=== PATIENT | female | born 1995 | race Caucasian/White ===

== ENCOUNTER 2024-10-20 10:56 | Outpatient (AMB) | payer MEDICAID, SELFPAY ==
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
[2024-10-20 10:59] VITALS: BP 121/76; PULSE 67; RESP 12; TEMP 36.8; O2SAT 98; BMI 38.6
== END 2024-10-20 13:00 | disposition home or self-care (01) ==
LOC: HODSOBC 10:56
PROVIDERS: PCP Family Medicine; Supervising Provider Obstetrics & Gynecology; Visit Provider Obstetrics & Gynecology
DX: O09.291 Supervision of pregnancy with other poor reproductive or obstetric history, first trimester (principal); O34.219 Maternal care for unspecified type scar from previous cesarean delivery; O09.891 Supervision of other high risk pregnancies, first trimester; O99.281 Endocrine, nutritional and metabolic diseases complicating pregnancy, first trimester; E03.9 Hypothyroidism, unspecified; Z3A.08 8 weeks gestation of pregnancy; O99.321 Drug use complicating pregnancy, first trimester; F12.90 Cannabis use, unspecified, uncomplicated; O99.331 Smoking (tobacco) complicating pregnancy, first trimester; F17.290 Nicotine dependence, other tobacco product, uncomplicated; Z14.8 Genetic carrier of other disease; Z71.6 Tobacco abuse counseling; Z79.890 Hormone replacement therapy
CPT/HCPCS: 76805; 76817; 99214; G0463

== ENCOUNTER 2024-11-20 13:10 | Outpatient (AMB) | payer MEDICAID, SELFPAY ==
[2024-11-20 13:20] VITALS: BP 116/77; PULSE 69; RESP 14; TEMP 36.7; O2SAT 96; BMI 37.6
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
== END 2024-11-20 14:09 | disposition home or self-care (01) ==
LOC: HODSOBC 13:10
PROVIDERS: PCP Family Medicine; Referring Provider Family Medicine; Supervising Provider Family Medicine; Visit Provider Family Medicine
DX: O99.281 Endocrine, nutritional and metabolic diseases complicating pregnancy, first trimester (principal); E03.9 Hypothyroidism, unspecified; O34.219 Maternal care for unspecified type scar from previous cesarean delivery; O99.321 Drug use complicating pregnancy, first trimester; F12.90 Cannabis use, unspecified, uncomplicated; Z3A.12 12 weeks gestation of pregnancy; Z79.890 Hormone replacement therapy
CPT/HCPCS: 99214; G0463

== ENCOUNTER 2024-12-20 13:22 | Outpatient (AMB) | payer MEDICAID, SELFPAY ==
[2024-12-20 13:52] VITALS: BP 111/68; PULSE 67; RESP 18; TEMP 35.9; O2SAT 98; BMI 40.0
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
== END 2024-12-20 14:54 | disposition home or self-care (01) ==
LOC: HODSOBC 13:22
PROVIDERS: Supervising Provider Obstetrics & Gynecology; Visit Provider Obstetrics & Gynecology
DX: O09.292 Supervision of pregnancy with other poor reproductive or obstetric history, second trimester (principal); Z3A.16 16 weeks gestation of pregnancy; O09.892 Supervision of other high risk pregnancies, second trimester; O99.282 Endocrine, nutritional and metabolic diseases complicating pregnancy, second trimester; E03.9 Hypothyroidism, unspecified; O99.332 Smoking (tobacco) complicating pregnancy, second trimester; F17.210 Nicotine dependence, cigarettes, uncomplicated; O99.322 Drug use complicating pregnancy, second trimester; F12.90 Cannabis use, unspecified, uncomplicated; Z71.6 Tobacco abuse counseling; Z79.890 Hormone replacement therapy; O34.219 Maternal care for unspecified type scar from previous cesarean delivery
CPT/HCPCS: 99213; G0463

== ENCOUNTER 2025-01-17 10:59 | Outpatient (AMB) | payer MEDICAID, SELFPAY ==
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
[2025-01-17 11:08] VITALS: BP 107/70; PULSE 78; RESP 17; TEMP 36.7; O2SAT 98; BMI 39.9
== END 2025-01-17 11:56 | disposition home or self-care (01) ==
LOC: HODSOBC 10:59
PROVIDERS: Supervising Provider Obstetrics & Gynecology; Visit Provider Obstetrics & Gynecology
DX: O09.292 Supervision of pregnancy with other poor reproductive or obstetric history, second trimester (principal); O09.892 Supervision of other high risk pregnancies, second trimester; O99.212 Obesity complicating pregnancy, second trimester; E66.01 Morbid (severe) obesity due to excess calories; O99.282 Endocrine, nutritional and metabolic diseases complicating pregnancy, second trimester; O34.219 Maternal care for unspecified type scar from previous cesarean delivery; E03.9 Hypothyroidism, unspecified; O99.322 Drug use complicating pregnancy, second trimester; O99.342 Other mental disorders complicating pregnancy, second trimester; Z3A.20 20 weeks gestation of pregnancy; O99.332 Smoking (tobacco) complicating pregnancy, second trimester; F17.290 Nicotine dependence, other tobacco product, uncomplicated; Z14.8 Genetic carrier of other disease; F32.A Depression, unspecified; F12.90 Cannabis use, unspecified, uncomplicated; Z71.6 Tobacco abuse counseling; Z79.890 Hormone replacement therapy
CPT/HCPCS: 99213; G0463

== ENCOUNTER 2025-01-31 11:47 | Outpatient (AMB) | payer MEDICAID, SELFPAY ==
[2025-01-31 11:56] VITALS: BP 115/72; PULSE 72; RESP 19; TEMP 36.5; O2SAT 98; BMI 41.1
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
== END 2025-01-31 12:38 | disposition home or self-care (01) ==
LOC: HODSOBC 11:47
PROVIDERS: Supervising Provider Obstetrics & Gynecology; Visit Provider Obstetrics & Gynecology
DX: O09.292 Supervision of pregnancy with other poor reproductive or obstetric history, second trimester (principal); O34.219 Maternal care for unspecified type scar from previous cesarean delivery; O09.892 Supervision of other high risk pregnancies, second trimester; O99.332 Smoking (tobacco) complicating pregnancy, second trimester; F17.290 Nicotine dependence, other tobacco product, uncomplicated; O99.322 Drug use complicating pregnancy, second trimester; F12.90 Cannabis use, unspecified, uncomplicated; Z3A.22 22 weeks gestation of pregnancy; Z71.6 Tobacco abuse counseling; Z88.0 Allergy status to penicillin
CPT/HCPCS: 99214; G0463

== ENCOUNTER 2025-03-09 11:05 | Outpatient (AMB) | payer MEDICAID, SELFPAY ==
[2025-03-09 11:29] VITALS: BP 119/73; PULSE 77; RESP 17; TEMP 36.5; O2SAT 98; BMI 41.5
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
== END 2025-03-09 11:58 | disposition home or self-care (01) ==
LOC: HODSOBC 11:05
PROVIDERS: Supervising Provider Obstetrics & Gynecology; Visit Provider Obstetrics & Gynecology
DX: O09.893 Supervision of other high risk pregnancies, third trimester (principal); O99.213 Obesity complicating pregnancy, third trimester; E66.01 Morbid (severe) obesity due to excess calories; O99.343 Other mental disorders complicating pregnancy, third trimester; F41.8 Other specified anxiety disorders; O99.283 Endocrine, nutritional and metabolic diseases complicating pregnancy, third trimester; O09.293 Supervision of pregnancy with other poor reproductive or obstetric history, third trimester; O34.219 Maternal care for unspecified type scar from previous cesarean delivery; E03.9 Hypothyroidism, unspecified; O99.333 Smoking (tobacco) complicating pregnancy, third trimester; F17.210 Nicotine dependence, cigarettes, uncomplicated; O99.323 Drug use complicating pregnancy, third trimester; F12.90 Cannabis use, unspecified, uncomplicated; Z3A.28 28 weeks gestation of pregnancy; Z71.6 Tobacco abuse counseling; Z79.890 Hormone replacement therapy; Z88.0 Allergy status to penicillin; Z53.29 Procedure and treatment not carried out because of patient's decision for other reasons
CPT/HCPCS: 99213; G0463

== ENCOUNTER 2025-03-21 14:54 | Outpatient (AMB) | payer MEDICAID, SELFPAY ==
[2025-03-21 15:18] VITALS: BP 108/71; PULSE 88; RESP 18; TEMP 36.7; O2SAT 96; BMI 41.2
--- NOTE | 2025-03-21 15:18 | AMB.OBVISIT ---
Vital Signs 03/21/25 15:18 Height 1.65 m Height Method Stated Weight 112.264 kg Weight Measurement Method Standing Scale BMI 41.2 BP 108/71 Blood Pressure Source Automatic Cuff Blood Pressure Location Left Upper Arm Position Sitting Respiration 18 Pulse 88 Pulse Source Monitor Temp 98.0 F Temp Source Oral Pulse Oximetry (%) 96 Oxygen Delivery Method Room Air Allergies/Home Meds Allergies & Medications Allergies Penicillins Allergy (Unknown, Verified 03/21/25 15:20) Rash amoxicillin Allergy (Verified 03/21/25 15:20) Rash Medication Reconciliation cetirizine 10 mg tablet (Zyrtec) 10 mg PO QHS #60 tabs 11/20/24 [Rx Confirmed 03/21/25] levothyroxine 125 mcg capsule 125 mcg PO QDAY #60 caps 11/20/24 [Rx Confirmed 03/21/25] vitamins no.159-iron fumarate 28 mg-folic acid 800 mcg tablet 1 tab PO DAILY #90 tabs 11/20/24 [Rx Confirmed 03/21/25] ondansetron 4 mg disintegrating tablet 4 mg PO Q6H PRN nausea and vomiting #14 tabs 01/17/25 [Rx Confirmed 03/21/25] fluconazole 150 mg tablet 150 mg PO QDAY 1 dose #1 tab 03/21/25 [Rx] Intake Visit Data Collection New Patient or Established: Established Patient (seen at [facility] within 3 years) Reason for Visit:: CARE Seen by Clinical Staff ONLY (RN/MA): No Sales Enablement Consultant Required: No Do You Feel Safe at Home: Yes Authorities Contacted: N/A PCP or OBGYN visit in last 3 months: Yes Hx Now: Yes Are you currently on any form of Control: No Pain Present Currently: No Pain Scale Used: Woodruff-Butt/Numerical Pain scale:: 0 Smoking Status Smoking Status: Current some day smoker (Smokes Marijuana) Cessation Counseling Provided: ABDOULAYE was advised that quitting smoking is the single most important factor to protect the health of themselves and their family. Discussed the benefits of quitting smoking with patient. Encouraged patient to quit smoking and provided Cessation assistance materials and resources. Tobacco Use: Nicotine Years smoked: 5 Are you interested in Quitting?: No Questionnaires Covid-19 Vaccine Questionnaire Has patient been vacinated for Covid-19 Have you been vacinated for Covid-19: No PHQ-9 PHQ-2 Over the last 2 weeks, how often have you been bothered by any of the following problems? 1. Little interest or pleasure in doing things: not at all 2. Feeling down, depressed, or hopeless: not at all Total score: 0 PHQ-9 3. Trouble falling or staying asleep, or sleeping too much: Not at all 4. Feeling tired or having little energy: Not at all 5. Poor appetite or overeating: Not at all 6. Feeling bad about yourself - or that you are a failure or have let yourself or your family down: Not at all 7. Trouble concentrating on things, such as reading the newspaper or watching television: Not at all 8. Moving or speaking so slowly that other people could have noticed? - Or the opposite - being so fidgety or restless that you have been moving around a lot more than usual: not at all 9. Thoughts that you would be better off or of hurting yourself in some way: Not at all Total score: 0 Source: Developed by Drs. Donald Acosta, Daniela Hoffmann, lEijah Blum and colleagues, with an educational cherie from [employer]. Depression screen completed yes Social History Living Situation History Lives With: Family (Parents) Housing: House Housing Other:: Stays at home IHSS (In house support) for son w/Type I DM. 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: Past Medical History Past Medical History: No Hx Neurological Disorders, Yes Hx Hypothyroidism (TAKES MEDS), No Hx Breast Cancer, No Hx Cardiac Disorders, No Hx Hypertension, No Hx Cancer, No Hx Blood Disorders, No Hx Anemia, Yes Hx Gastrointestinal Disorders, No Hx Renal Disease, No Hx Deep Vein Thrombosis, No Hx Diabetes Mellitus Type 1, No Hx Diabetes Mellitus Type 2, No Hx Hysterectomy and No Hx Polycystic Ovarian Syndrome Care OB Visit Log OB Flowsheet Initial Weight: Not Recorded Date <del>?</del> EGA Weight BP Alb Glu CTX Pres Fundal ht FHR Mov Dilation Station Effacement Hx Notes Visit Note 10/20/24 <del>?</del> 8w 0d 105.233 kg 121/76 130 11/20/24 <del>?</del> 12w 3d 102.512 kg 116/77 140 absent 12/20/24 <del>?</del> 16w 5d 109.089 kg 111/68 absent 15 135 absent 29-year-old multipara for OB check. Patient states she is compliant with levothyroxine 125. History of hypothyroid. Denies movement at this time. No SAB complaints. Patient refuses AFP today. Schedule MFM for anatomy scan. And return in 4 weeks OB check 01/17/25 <del>?</del> 20w 5d 108.862 kg 107/70 absent 20 140 active +FM No VB Patient crying. Very tearful. Having problems with the father the baby. She does not think he wants to be involved. Needs counseling. This was set up. 01/31/25 <del>?</del> 22w 5d 112.094 kg 115/72 absent 23 134 active No bleeding no contractions no loss of fluids Patient states she did not follow-up with her outpatient referral to mental health. She states she feels better. She states that she was having a bad day last time she saw me. She declines medication or counseling she. 03/09/25 <del>?</del> 28w 0d 113.115 kg 119/73 absent 28 156 active +FM no UCs No LOF Desires STD testing 03/21/25 <del>?</del> 29w 5d 112.264 kg 108/71 absent 30 160 active Good movement no contractions no loss of fluid Tearful in the office today unsure why. Patient states she is worried about her insulin-dependent diabetic toddler when she is in the hospital. Father the baby is going to assisted. He was not probably going to be involved with this anyway. KRISTA Calculator Estimated Delivery Date Method Current WG Current Estimate 06/01/25 Ultrasound #1 29w 5d Other Estimates 05/28/25 LMP (Certain) 30w 2d Expected Delivery Route/Plan 30 y/o Repeat 1-2 week prior to due date approximately May 19 Specific Issue/Plans Daily marijuana user. New father of the baby. Previous x 3 Starting maternal BMI 38 Severe anxiety depression mood instability/at high risk for depression and anxiety Hypothyroidism on meds Declines tubal ligation Notes Visit Date: 03/21/25 Last Updated by: Ida Dumont (OB Clinic)MD STD testing reviewed and normal patient had this drawn at [facility] 03/09/2025 she does not have BV she has yeast. She is RPR nonreactive hepatitis B surface antigen negative HIV negative and she is positive for HSV IgG. She has a history of cold sores. This was all explained in detail to the patient today. We will prescribe Diflucan she states she saw the maternal- medicine doctors in [place] at [facility] on the . I do not have report yet she stated they wanted to start NSTs. We will get the schedule. Most likely for obesity. Patient is always very tearful in the office we have tried to send her to counseling and she has not shown up. She declines counseling. None of her labs are scanned on the chart. None of her level 2 ultrasounds are scanned in the chart. Will try to get a hold of these. Will schedule her for an NSTs starting at 32 weeks. For obesity, marijuana user, multiple C-sections Visit Date: 03/09/25 Last Updated by: Ida Dumont (OB Clinic)MD The patient wants STD testing. She states she had relations with someone about a month ago but did not use a condom. She also wants to be tested for BV. But she declines a speculum exam stating she does not want me to look down there She would prefer to collect her own swab for BV. I explained this might not be accurate but the patient is insistent. She denies foul smelling DC, bleeding or other symptoms. A Level II us from [facility] at 25 weeks was obtained and reviewed with the patient. Fasting glucose and HgB AiC WNL. Pt declined GCT. Need PNC recored on chart. NIPT WNL. 46 XX Visit Date: 11/20/24 Last Updated by: Ida Dumont (OB Clinic)MD Patient is tearful in the office stating she had to wait a long time. She states she cannot sleep and requests generic Zyrtec. She would like a refill on vitamins. She thinks she has BV and would like a treatment with a cream. Her thyroid values were off and she cannot get into her primary care. She is on 100 mcg of thyroid replacement we will bump this up to 125 mcg. She is very stressed about delivery stating that she is the only person who can give her 5-year-old son his insulin. She is wondering if her 5-year-old could stay in the hospital with her. I told her this is not hospital policy. She might have to train another family member to give her son's insulin. Office Procedures OB Clinic LOC & Office Proc's Nursing/Assessment Patient Status: Established Patient OB Clinic Nursing Assessment: Medication Reconciliation, Update PMH in EMR and Vital Signs OB Clinic Coordination of Care: Complex Care and Chronic Disease 1-5, Consent,records obtained, informed consent, Education Simp Pt/Fam, 1 Ins Authorization, Lab and Imaging orders, Results/Orders obtained and Staff clarify orders Special Needs: Heart tones Established Patient Charge Established Patient Point Assignment: 150 Established Patient Point Charge: EP Level 4 (120-155) Assessment & Plan Diagnosis / Problem List (1) Morbid obesity with BMI of 40.0-44.9, adult: Status: Acute Assessment and Plan: Comanaged with MFM's deliver at 38 to 39 weeks (2) Depression affecting in third trimester, antepartum: Status: Acute Assessment and Plan: No meds declines counseling (3) : Status: Acute Qualifiers: Weeks of gestation: 30 weeks Qualified Code(s): Z3A.30 - 30 weeks gestation of (4) Hypothyroidism affecting : Status: Acute Qualifiers: Trimester: first trimester Qualified Code(s): O99.281 - Endocrine, nutritional and metabolic diseases complicating , first trimester; E03.9 - Hypothyroidism, unspecified (5) Previous delivery affecting : Status: Acute Assessment and Plan: Delivered at 38 to 39 weeks as this is #4
== END 2025-03-21 16:17 | disposition home or self-care (01) ==
LOC: HODSOBC 14:54
PROVIDERS: Supervising Provider Obstetrics & Gynecology; Visit Provider Obstetrics & Gynecology
DX: O09.293 Supervision of pregnancy with other poor reproductive or obstetric history, third trimester (principal); O34.219 Maternal care for unspecified type scar from previous cesarean delivery; O09.893 Supervision of other high risk pregnancies, third trimester; O99.283 Endocrine, nutritional and metabolic diseases complicating pregnancy, third trimester; E03.9 Hypothyroidism, unspecified; O99.213 Obesity complicating pregnancy, third trimester; E66.01 Morbid (severe) obesity due to excess calories; O99.343 Other mental disorders complicating pregnancy, third trimester; F41.8 Other specified anxiety disorders; O99.333 Smoking (tobacco) complicating pregnancy, third trimester; F17.290 Nicotine dependence, other tobacco product, uncomplicated; Z3A.29 29 weeks gestation of pregnancy; Z71.6 Tobacco abuse counseling; Z79.890 Hormone replacement therapy; Z88.0 Allergy status to penicillin
CPT/HCPCS: 99214; G0463

== ENCOUNTER 2025-04-11 09:50 | Outpatient (AMB) | payer MEDICAID, SELFPAY ==
[2025-04-11 10:01] VITALS: BP 126/77; PULSE 77; RESP 17; TEMP 36.5; O2SAT 97; BMI 43.0
--- NOTE | 2025-04-11 10:01 | OBCLNT_ITS ---
Vital Signs 04/11/25 10:01 Height 1.63 m Height Method Measured Weight 113.625 kg Weight Measurement Method Standing Scale BMI 43.0 BP 126/77 Blood Pressure Source Automatic Cuff Blood Pressure Location Right Upper Arm Position Sitting Respiration 17 Pulse 77 Pulse Source Monitor Temp 97.7 F Temp Source Temporal Artery Scan Pulse Oximetry (%) 97 Oxygen Delivery Method Room Air Allergies/Home Meds Allergies & Medications Allergies Penicillins Allergy (Unknown, Verified 04/11/25 10:02) Rash amoxicillin Allergy (Verified 04/11/25 10:02) Rash Medication Reconciliation cetirizine 10 mg tablet (Zyrtec) 10 mg PO QHS #60 tabs 11/20/24 [Rx Confirmed 04/11/25] levothyroxine 125 mcg capsule 125 mcg PO QDAY #60 caps 11/20/24 [Rx Confirmed 04/11/25] vitamins no.159-iron fumarate 28 mg-folic acid 800 mcg tablet 1 tab PO DAILY #90 tabs 11/20/24 [Rx Confirmed 04/11/25] ondansetron 4 mg disintegrating tablet 4 mg PO Q6H PRN nausea and vomiting #14 tabs 01/17/25 [Rx Confirmed 04/11/25] fluconazole 150 mg tablet 150 mg PO QDAY 1 dose #1 tab 03/21/25 [Rx Confirmed 04/11/25] Intake Visit Data Collection New Patient or Established: Established Patient (seen at [facility] within 3 years) Reason for Visit:: [facility] Consent obtained for Telemed Visit: No Seen by Clinical Staff ONLY (RN/MA): No Quality Process Lead Required: No Do You Feel Safe at Home: Yes Authorities Contacted: N/A PCP or OBGYN visit in last 3 months: Yes Date of Last PCP or OBGYN visit: 03/21/25 Hx Now: Yes Are you currently on any form of Control: No Pain Present Currently: No Pain Scale Used: Woodruff-Butt/Numerical Pain scale:: 0 Smoking Status Smoking Status: Current some day smoker (Smokes Marijuana) Cessation Counseling Provided: ABDOULAYE was advised that quitting smoking is the single most important factor to protect the health of themselves and their family. Discussed the benefits of quitting smoking with patient. Encouraged patient to quit smoking and provided Cessation assistance materials and resources. Tobacco Use: Cigarette Years smoked: 5 Are you interested in Quitting?: Yes Would you like additional Smoking Cessation Counseling?: No Questionnaires Covid-19 Vaccine Questionnaire Has patient been vacinated for Covid-19 Have you been vacinated for Covid-19: No PHQ-9 PHQ-2 Over the last 2 weeks, how often have you been bothered by any of the following problems? 1. Little interest or pleasure in doing things: not at all PHQ-9 8. Moving or speaking so slowly that other people could have noticed? - Or the opposite - being so fidgety or restless that you have been moving around a lot more than usual: not at all Source: Developed by Drs. Donald Acosta, Daniela Hoffmann, Elijah Blum and colleagues, with an educational cherie from [employer]. Social History Living Situation History Lives With: Family (Parents) Housing: House Housing Other:: Stays at home IHSS (In house support) for son w/Type I DM. 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: Past Medical History Past Medical History: No Hx Neurological Disorders, Yes Hx Hypothyroidism (TAKES MEDS), No Hx Breast Cancer, No Hx Cardiac Disorders, No Hx Hypertension, No Hx Cancer, No Hx Blood Disorders, No Hx Anemia, Yes Hx Gastrointestinal Disorders, No Hx Renal Disease, No Hx Deep Vein Thrombosis, No Hx Diabetes Mellitus Type 1, No Hx Diabetes Mellitus Type 2, No Hx Hysterectomy and No Hx Polycystic Ovarian Syndrome Care OB Visit Log OB Flowsheet Initial Weight: Not Recorded Date -?-?-?-?-?-?-?-?-?-?-?-?- EGA Weight BP Alb Glu CTX Pres Fundal ht FHR Mov Dilation Station Effacement Hx Notes Visit Note 10/20/24 -?-?-?-?-?-?-?-?-?-?-?-?- 8w 0d 105.233 kg 121/76 130 11/20/24 -?-?-?-?-?-?-?-?-?-?-?-?- 12w 3d 102.512 kg 116/77 140 absent 12/20/24 -?-?-?-?-?-?-?-?-?-?-?-?- 16w 5d 109.089 kg 111/68 absent 15 135 a bsent 29-year-old multipara for OB check. Patient states she is compliant with levothyroxine 125. History of hypothyroid. Denies movement at this time. No SAB complaints. Patient refuses AFP today. Schedule [facility] for anatomy scan. And return in 4 weeks OB check 01/17/25 -?-?-?-?-?-?-?-?-?-?-?-?- 20w 5d 108.862 kg 107/70 absent 20 140 active +FM N o VB Patient crying. Very tearful. Having problems with the father the baby. She does not think he wants to be involved. Needs counseling. This was set up. 01/31/25 -?-?-?-?-?-?-?-?-?-?-?-?- 22w 5d 112.094 kg 115/72 absent 23 134 a ctive No bleeding no contractions no loss of fluids Patient states she did not follow-up with her outpatient referral to mental health. She states she feels better. She states that she was having a bad day last time she saw me. She declines medication or counseling she. 03/09/25 -?-?-?-?-?-?-?-?-?-?-?-?- 28w 0d 113.115 kg 119/73 absent 28 156 active +FM n o UCs No LOF Desires STD testing 03/21/25 -?-?-?-?-?-?-?-?-?-?-?-?- 29w 5d 112.264 kg 108/71 absent 30 160 a ctive Good movement no contractions no loss of fluid Te arful in the office today unsure why. Patient states she is worried about her insulin-dependent diabetic toddler when she is in the hospital. Father the baby is going to long-term. He was not probably going to be involved with this anyway. 04/11/25 -?-?-?-?-?-?-?-?-?-?-?-?- 32w 5d 113.625 kg 126/77 absent 35 145 a ctive Good movement no contractions no loss of fluids. Baby measuring large. Following with [facility]. Schedule at 38 weeks. KRISTA Calculator Estimated Delivery Date Method Current WG Current Estimate 06/01/25 Ultrasound #1 32w 5d Other Estimates 05/28/25 LMP (Certain) 33w 2d Expected Delivery Route/Plan 30 y/o Repeat 1-2 week prior to due date approximately May 14- Specific Issue/Plans Daily marijuana user. New father of the baby. Previous x 3 Starting maternal BMI 38 Severe anxiety depression mood instability/at high risk for depr ession and anxiety Hypothyroidism on meds Declines tubal ligation Notes Visit Date: 04/11/25 Last Updated by: Ida Dumont (OB Clinic)MD NSTs BPP's authorized and scheduled. Schedule 05/14/2025. EDC 05/28/2025. LGA baby. Morbid obesity. Previous x 3. Visit Date: 03/21/25 Last Updated by: Ida Dumont (OB Clinic)MD STD testing reviewed and normal patient had this drawn at [facility] 03/09 she does not have BV she has yeast. She is RPR nonreactive hepatitis B surface antigen negative HIV negative and she is positive for HSV IgG. She has a history of cold sores. This was all explained in detail to the patient today. We will prescribe Diflucan she states she saw the maternal- medicine doctors in [place] at [facility] on the . I do not have report yet she stated they wanted to start NSTs. We will get the schedule. Most likely for obesity. Patient is always very tearful in the office we have tried to send her to counseling and she has not shown up. She declines counseling. None of her labs are scanned on the chart. None of her level 2 ultrasounds are scanned in the chart. Will try to get a hold of these. Will schedule her for an NSTs starting at 32 weeks. For obesity, marijuana user, multiple C-sections Visit Date: 03/09/25 Last Updated by: Ida Dumont (OB Clinic)MD The patient wants STD testing. She states she had relations with someone about a month ago but did not use a condom. She also wants to be tested for BV. But she declines a speculum exam stating she does not want me to look down there She would prefer to collect her own swab for BV. I explained this might not be accurate but the patient is insistent. She denies foul smelling DC, bleeding or other symptoms. A Level II us from [facility] at 25 weeks was obtained and reviewed with the patient. Fasting glucose and HgB AiC WNL. Pt declined GCT. Need PNC recored on chart. NIPT WNL. 46 XX Visit Date: 11/20/24 Last Updated by: Ida Dumont (OB Clinic)MD Patient is tearful in the office stating she had to wait a long time. She states she cannot sleep and requests generic Zyrtec. She would like a refill on vitamins. She thinks she has BV and would like a treatment with a cream. Her thyroid values were off and she cannot get into her primary care. She is on 100 mcg of thyroid replacement we will bump this up to 125 mcg. She is very stressed about delivery stating that she is the only person who can give her 5-year-old son his insulin. She is wondering if her 5-year-old could stay in the hospital with her. I told her this is not hospital policy. She might have to train another family member to give her son's insulin. Office Procedures OB Clinic LOC & Office Proc's Nursing/Assessment Patient Status: Established Patient OB Clinic Nursing Assessment: Medication Reconciliation, Update PMH in EMR and Vital Signs OB Clinic Coordination of Care: Complex Care and Chronic Disease 1-5, Consent,records obtained, informed consent, Education Simp Pt/Fam, 4+ Authorizations needed, Lab and Imaging orders and Results/Orders obtained Special Needs: Heart tones Established Patient Charge Established Patient Point Assignment: 150 Established Patient Point Charge: EP Level 4 (120-155) Assessment & Plan Diagnosis / Problem List (1) Previous delivery affecting : Status: Acute (2) : Status: Acute Qualifiers: Weeks of gestation: 30 weeks Qualified Code(s): Z3A.30 - 30 weeks gestation of (3) Depression affecting in third trimester, antepartum: Status: Acute (4) Morbid obesity with BMI of 40.0-44.9, adult: Status: Acute
== END 2025-04-11 10:42 | disposition home or self-care (01) ==
LOC: HODSOBC 09:50
PROVIDERS: Supervising Provider Obstetrics & Gynecology; Visit Provider Obstetrics & Gynecology
DX: O09.293 Supervision of pregnancy with other poor reproductive or obstetric history, third trimester (principal); O09.893 Supervision of other high risk pregnancies, third trimester; O34.219 Maternal care for unspecified type scar from previous cesarean delivery; Z3A.32 32 weeks gestation of pregnancy; O99.213 Obesity complicating pregnancy, third trimester; E66.01 Morbid (severe) obesity due to excess calories; O99.343 Other mental disorders complicating pregnancy, third trimester; O99.333 Smoking (tobacco) complicating pregnancy, third trimester; F41.8 Other specified anxiety disorders; O36.63X0 Maternal care for excessive fetal growth, third trimester, not applicable or unspecified; O99.283 Endocrine, nutritional and metabolic diseases complicating pregnancy, third trimester; E03.9 Hypothyroidism, unspecified; O99.323 Drug use complicating pregnancy, third trimester; F17.210 Nicotine dependence, cigarettes, uncomplicated; F12.90 Cannabis use, unspecified, uncomplicated; Z71.6 Tobacco abuse counseling; Z79.890 Hormone replacement therapy; Z88.0 Allergy status to penicillin
CPT/HCPCS: 99214; G0463

== ENCOUNTER 2025-05-10 08:41 | Outpatient (RCR) | payer MEDICAID, SELFPAY ==
--- NOTE | 2025-04-19 09:42 | XR_ITS ---
Examination: Biophysical profile, ultrasound Date and time of exam: March 2020 has and 25, 0952 hours INDICATIONS: Diagnosis morbid obesity Technique: Multiple transabdominal sonographic images of the pelvis abdomen obtained. Attention is directed to the breathing movement, gross body movement, amniotic fluid volume and tone. Findings: Amniotic fluid index 15.2 cm Total biophysical profile is 8 of 8. breathing movement is 2. Gross body movement is 2. tone is 2. Qualitative amniotic fluid volume is 2 Impression: Biophysical profile is 8 of 8.
[2025-04-19 10:21] VITALS: BP 106/62; PULSE 75; RESP 16; TEMP 36.7
--- NOTE | 2025-04-26 09:11 | XR_ITS ---
Examination: Biophysical profile, ultrasound Date and time of exam: April 26, 2025 0916 hours INDICATIONS: Diagnosis morbid obesity Technique: Multiple transabdominal sonographic images of the pelvis abdomen obtained. Attention is directed to the breathing movement, gross body movement, amniotic fluid volume and tone. Findings: Amniotic fluid index 22.9 cm Total biophysical profile is 8 of 8. breathing movement is 2. Gross body movement is 2. tone is 2. Qualitative amniotic fluid volume is 2 Impression: Biophysical profile is 8 of 8.
[2025-04-26 09:41] VITALS: BP 101/56; PULSE 76; RESP 16; TEMP 36.7
--- NOTE | 2025-04-30 09:12 | XR_ITS ---
Examination: Biophysical profile, ultrasound Date and time of exam: April 30, 2025, 0926 hours INDICATIONS: Diagnosis maternal obesity Technique: Multiple transabdominal sonographic images of the pelvis abdomen obtained. Attention is directed to the breathing movement, gross body movement, amniotic fluid volume and tone. Findings: Amniotic fluid index 15.8 cm Total biophysical profile is 8 of 8. breathing movement is 2. Gross body movement is 2. tone is 2. Qualitative amniotic fluid volume is 2 Impression: Biophysical profile is 8 of 8.
[2025-04-30 09:39] VITALS: BP 108/59; PULSE 78; RESP 16
--- NOTE | 2025-05-03 09:24 | XR_ITS ---
Examination: Biophysical profile, ultrasound Date and time of exam: May 03, 2025 0931 hours INDICATIONS: Diagnosis maternal obesity. Technique: Multiple transabdominal sonographic images of the pelvis abdomen obtained. Attention is directed to the breathing movement, gross body movement, amniotic fluid volume and tone. Findings: Amniotic fluid index 20.5 cm Total biophysical profile is 8 of 8. breathing movement is 2. Gross body movement is 2. tone is 2. Qualitative amniotic fluid volume is 2 Impression: Biophysical profile is 8 of 8.
[2025-05-03 10:04] VITALS: BP 116/59; PULSE 80; RESP 16; TEMP 36.7
--- NOTE | 2025-05-10 08:46 | XR_ITS ---
Examination: Biophysical profile, ultrasound Date and time of exam: May 10, 2025 0902 hours INDICATIONS: Diagnosis maternal obesity Technique: Multiple transabdominal sonographic images of the pelvis abdomen obtained. Attention is directed to the breathing movement, gross body movement, amniotic fluid volume and tone. Findings: Amniotic fluid index 20.6 cm Total biophysical profile is 8 of 8. breathing movement is 2. Gross body movement is 2. tone is 2. Qualitative amniotic fluid volume is 2 Impression: Biophysical profile is 8 of 8.
[2025-05-10 10:00] VITALS: BP 121/76; PULSE 75; RESP 16; TEMP 36.7
== END 2025-05-10 23:59 | disposition home or self-care (01) ==
LOC: S4S1 08:41
PROVIDERS: Referring Provider Obstetrics & Gynecology; Visit Provider Obstetrics & Gynecology
DX: O99.213 Obesity complicating pregnancy, third trimester (principal); E66.01 Morbid (severe) obesity due to excess calories; O99.343 Other mental disorders complicating pregnancy, third trimester; F32.A Depression, unspecified; O34.219 Maternal care for unspecified type scar from previous cesarean delivery; Z3A.36 36 weeks gestation of pregnancy
CPT/HCPCS: 59025; 76819

== ENCOUNTER 2025-05-14 10:13 | Inpatient (IN) | payer MEDICAID, SELFPAY ==
[2025-05-14] VITALS (24 sets, daily range): BP systolic 102–144; BP diastolic 52–92; PULSE 54–78; RESP 14–18; TEMP 36.6–36.8; O2SAT 93–99; BMI 43.1
[2025-05-14 11:45] LABS: Basophils # (Auto) 0.0 Thou/mm3 (0.0-0.2); Basophils % (Auto) 1 % (0-2.5); Eosinophils # (Auto) 0.1 Thou/mm3 (0.0-0.5); Eosinophils % (Auto) 1 % (0-10); Hematocrit 38.0 % (36.0-46.0); Hemoglobin 12.7 g/dL (12.0-16.0); Immature Granulocytes Auto 0.04 Thou/mm3 (0.00-0.00); Lymphocytes # (Auto) 1.9 Thou/mm3 (1.0-4.8); Lymphocytes % (Auto) 26 % (10-50); Mean Corpuscular HGB Conc 33.4 g/dl (31.0-37.0); Mean Corpuscular Hemoglobin 27.5 pg (25.0-35.0); Mean Corpuscular Volume 82 fL (80-100); Monocytes # (Auto) 0.3 Thou/mm3 (0.0-0.8); Monocytes % (Auto) 5 % (0-12); Neutrophils # (Auto) 5.0 Thou/mm3 (1.8-7.7); Neutrophils % (Auto) 67 % (37-80); Nucleated Red Blood Cell # 0.00 Thou/mm3 (0.00-0.00); Nucleated Red Blood Cell % 0 /100 WBC (0); Platelet Count 260 Thou/mm3 (140-440); RDW Standard Deviation 38.8 fL (36.4-46.3); Red Blood Count 4.61 Miln/mm3 (4.00-5.20); White Blood Count 7.4 Thou/mm3 (3.6-11.0)
[2025-05-14] MEDS: CITRIC ACID/SODIUM CITR 15 ML UDC (BICITRA) 30 ML PO (12:07)
[2025-05-14] MEDS: FAMOTIDINE INJ 10 MG/ML VIAL 2 ML 20 MG IV (12:08)
[2025-05-14 12:13] LABS: Syphilis Nonreactive (Nonreactive)
--- NOTE | 2025-05-14 13:55 | PD.GYNPROC ---
Operative Note - GRADUATING MACHINE OPERATOR Procedure Date of procedure: 05/14/25 Procedure Performed: Repeat low-transverse section Indication: The patient is a 30-year-old -0-0-2 history of x 3 in the past. One of her children at age 1 from a car accident. Patient presents at 38 weeks for scheduled elective repeat section. section is being performed early secondary to #4 and morbid obesity. Pre-Op diagnosis: 1. Previous x 3 2. Morbid obesity with BMI of 43 Post-Op diagnosis: Same Anesthesia type: Spinal Fluids: crystalloid Fluid amount (mL): 1,100 Urine output (mL): 200 Specimen: none Implants: None Estimated blood loss (ml): 600 Findings: Liveborn female in the OA presentation with no nuchal cord and no meconium .Apgars were 8 and 9 .Weight was 7 pounds 8 ounces or 3390 g. Patient had dense scar tissue involving her fascia and abdominal muscles. It took almost 10 minutes to get through the skin to the uterus secondary to adhesions. It took two fresh scalpel blades to get through to the uterus. The there was very little scar tissue present around the uterus however the uterus could not be removed during repair secondary to dense scar tissue involving the rectus muscles and fascia. Ovaries and fallopian tubes could not be well-visualized. Lower uterine segment was thick Complications: none Narrative: After obtaining informed consent, the patient was brought back to the operating room and spinal anesthesia administered. She was then prepped and draped in the dorsal supine position with leftward tilt in a normal sterile fashion. A Latif catheter was inserted the patient's bladder. As patient gives gets a rash with penicillin, the patient was given 900 mg of clindamycin intravenously by anesthesia. A Pfannenstiel skin incision was made with a scalpel and the prior scar removed. The incision was carried down to the underlying fascia. The fascia was incised in the midline and the fascial incision extended laterally using Beltrán scissors. Of note dense scar tissue was noted between the fascia and the rectus abdominal muscles. The rectus muscles were in the midline with a scalpel. The peritoneal cavity was entered bluntly with the surgeon's fingers. The rectus muscles were then able to be split in the midline and bluntly dissected. The rectus muscles had to be split on both sides in a transverse fashion using a Bovie electrocautery in order to make room for the head. The uterus was identified and the bladder blade inserted. The uterus was incised in a low transverse fashion above the bladder reflection using a scalpel. The uterine incision was extended laterally using blunt dissection with the surgeon's fingers. The bag snell was ruptured and copious clear fluid was noted. The bladder blade was removed and the infant was delivered atraumatically. Of note a vacuum was used to extract the head as there was so much scar tissue that I could not extract the head without the aid of a vacuum. The baby was removed with 1 pull of the vacuum atraumatically and was vigorous. The cord was clamped and cut after waiting 1 to 2 minutes. The baby was handed off to the waiting pediatric staff. Cord blood was collected cord gases were saved. The placenta was then manually removed and the uterus could not be exteriorized secondary to dense scar tissue. The uterus was free but it could not be removed through the abdominal incision secondary to scar tissue of the muscles. The tubes and ovaries were unable to be visualized. The uterine cavity was cleared of all clots and debris using a laparotomy sponge. The edges of the uterus were grasped with ring forceps and the uterus was closed with a running locked fashion of 0 Monocryl. Excellent hemostasis was noted. Copious irrigation was carried out and the uterine incision reexamined several times and noted be hemostatic. Of note patient had very good uterine tone. After ensuring the rectus muscles were hemostatic ,the fascia was closed using 0 Vicryl in a running fashion. Excellent hemostasis was noted. The subcutaneous tissues were irrigated and found to be hemostatic. Eleni hemostatic powder was placed subcutaneous layer which was then closed using 2 running sutures of 2-0 plain secondary to the depth of the adipose tissue. The skin was closed with a subcuticular suture of 4-0 Monocryl. The patient tolerated the procedure well. Sponge, lap, needle and instrument counts were correct x 2. The patient went to the recovery area awake and in stable condition. Pathology was none. Surgical staff CHRISTOPHER AcevesA Operation Date: 05/14/25 12:45 <No data on this case meets the specified criteria> Diagnosis Discharge Diagnosis (1) Morbid obesity with BMI of 40.0-44.9, adult: Status: Acute Problem details: Lovenox , antibiotics x 24 hours (2) : Status: Acute (3) Previous section: Status: Acute Problem details: Previous x 3 Problem List Completed Was Problem List Reviewed/Reconciled?: Yes (2) Qualifiers: Weeks of gestation: 30 weeks Qualified Code(s): Z3A.30 - 30 weeks gestation of
[2025-05-14] MEDS: OXYTOCIN in NS 20 units 20 UNIT/1,000 ML BAG 125 UNIT IV (16:03)
[2025-05-14] MEDS: ACETAMINOPHEN IVPB 1,000 MG/100 ML VIAL 250 MG IV (16:03)
[2025-05-14] MEDS: ONDANSETRON INJ 2 MG/ML INJ 2 ML 4 MG IVP (16:11)
--- NOTE | 2025-05-14 18:02 | OBDSUM_ITS ---
Data ([place]) Data Hx Section: Yes Maternal Blood Type: O Pos Rubella Titre: Positive RPR: Non-reactive Labs: Negative: RPR, Hepatitis B, HIV, Chlamydia and Gonorrhea and Unknown: Group Beta Strep : 4 Term: 3 : 0 Livin Abortions: Spontaneous & Theraputic: 0 Delivery Data ([facility]) Labor Data ROM date: 05/14/25 ROM time: 13:11 Amniotic membrane rupture type: Artificial Amniotic fluid description: Clear Delivery Data EDC: 05/28/25 EDC calculated by:: LMP/early US confirmation Date of arrival to unit: 05/14/25 Time of arrival to unit: 10:00 [place] delivery date: 05/14/25 delivery time: 13:12 Gestational age (weeks): 38 Placenta delivery date: 05/14/25 Placenta delivery time: 13:14 Delivered by: Ida Dumont ([facility]) Delivery nurse: PANTERA López Neworn nurse: PANTERA Menendez Medical Transcriber at delivery: No Support person(s) at delivery: Mother in Law Other staff at delivery: Tony Caicedo- RN Student Moses Dumont- RN Student Delivery Method Delivery method: Low Transverse Presentation: Vertex position: OA Anesthesia Type Anesthesia Type: Spinal Anesthesia type: Spinal Delivery Room Medications Delivery room medications: Pitocin 20 u IV Placenta Placenta delivery description: Manual Removal Cord blood sent to lab: Yes cord blood collection: Cord Blood Type EBL Estimated blood loss (ml): 600 Umbilical Cord cord description: 3 Vessels Additional Procedures See op report for further details Complications Complications: None Data ([place]) [place] Data order: 1 's gender: Female Identification band number: [id number] weight (gms): 3390 g Weight (pounds): 7 lbs and 7.6 ozs [place] length: 52.71 cm 1 minute: 8 5 minutes: 9
[2025-05-14 18:03] LABS: Amphetamine/Metham Scrn,Ur OB Negative (Negative); Benzoylecgonine Screen, Ur OB Negative (Negative); Opiate Screen,Urine OB Negative (Negative); THC Screen,Urine OB Positive (Negative)
[2025-05-14] MEDS: KETOROLAC INJ 30 MG/ML VIAL IVP (18:03)
[2025-05-14 18:04] LABS: THC U Confirm* See Sep Rpt
--- NOTE | 2025-05-14 18:30 | ESHP_ITS ---
Documentation for date of: 05/14/25 OB Labor/Induct. HPI History of Present Illness Chief complaint: Schedule repeat : 4 Para: 3 Term pregnancies: 3 pregnancies: 0 Living children: 2 History of Abortions: Spontaneous and Elective: 0 History of sections: Yes Date of last menstrual period: 08/21/24 KRISTA: 05/28/25 Gestational Age (weeks): 38 Gestational Age (days): 0 Gestational age based on last menstrual period: 38 History of present illness: The patient is a 30-year-old -0-0-2 with all care with the [facility]. Patient is 38 weeks with an EDC of 05/28/2025. She presents for scheduled elective repeat section. It is being done at 38 weeks secondary to #4 and a BMI of 43. History of Present Dating criteria: LMP confirmed by 1st trimester US Adequate Care: Yes Ultrasounds: normal mid trimester US Obstetrical complications: none Medical complications: psychiatric (Severe anxiety depression, hypothyroid on medication, maternal morbid obesity) Labs Maternal Blood Type: O Pos Labs: Positive: Rubella Titre and Herpes Type 1, Negative: RPR, Hepatitis B, HIV, Chlamydia, Gonorrhea and Herpes Type 2 and Unknown: Group Beta Strep and Covid-19 Past Medical History Surgical History SURGICAL: Positive Section Past Medical History Comments PMH COMMENT: Hypothyroid is him on levothyroxine, morbid obesity, anxiety depression. Meds Home Medications and Allergies Allergies Allergy/AdvReac Type Severity Reaction Status Date / Time Penicillins Allergy Unknown Rash Verified 04/11/25 10:02 amoxicillin Allergy Rash Verified 04/11/25 10:02 OB Exam Physical Exam Vital signs: Temp Pulse Resp BP Pulse Ox O2 Del Method 98.1 F 72 18 110/82 99 Room Air 05/14/25 14:15 05/14/25 16:15 05/14/25 16:15 05/14/25 16:15 05/14/25 16:15 05/14/25 16:15 Routine Respiratory Exam Respiratory: Present CTA bilaterally Routine Cardiovascular Exam Cardiovascular: Present RRR Routine Abdominal Exam Abdominal: Present soft Detailed Labor and Delivery Exam Membranes: intact monitor accelerations: 15x15 monitor decelerations: None adjunct psychology professor variability: Moderate (11-25) Contraction frequency (min): None OB Results Labs 05/14/25 11:30 Labs: Short CBC 05/14/25 Range/Units 11:30 WBC 7.4 (3.6-11.0) Thou/mm3 Hgb 12.7 (12.0-16.0) g/dL Hct 38.0 (36.0-46.0) % Plt Count 260 (140-440) Thou/mm3 OB Assessment & Plan Assessment and Plan (1) Morbid obesity with BMI of 40.0-44.9, adult: Status: Acute Assessment and plan: Antibiotics x 24 hours postop. Allergic to penicillin. Given clindamycin and then gentamycin. (2) : Status: Acute (3) Previous section: Status: Acute Assessment and plan: For scheduled elective repeat section, [address] (2) Qualifiers: Weeks of gestation: 30 weeks Qualified Code(s): Z3A.30 - 30 weeks gestation of
[2025-05-15] MEDS: KETOROLAC INJ 30 MG/ML VIAL IVP ×3 (01:08→18:30)
[2025-05-15] MEDS: OXYTOCIN in NS 20 units 20 UNIT/1,000 ML BAG 125 UNIT IV (01:08)
[2025-05-15 03:58] VITALS: BP 109/69; PULSE 59; RESP 18; TEMP 36.6; O2SAT 98
[2025-05-15 05:37] LABS: Basophils # (Auto) 0.0 Thou/mm3 (0.0-0.2); Basophils % (Auto) 0 % (0-2.5); Eosinophils # (Auto) 0.1 Thou/mm3 (0.0-0.5); Eosinophils % (Auto) 1 % (0-10); Hematocrit 31.5 % (36.0-46.0); Hemoglobin 10.4 g/dL (12.0-16.0); Immature Granulocytes Auto 0.02 Thou/mm3 (0.00-0.00); Lymphocytes # (Auto) 1.5 Thou/mm3 (1.0-4.8); Lymphocytes % (Auto) 20 % (10-50); Mean Corpuscular HGB Conc 33.0 g/dl (31.0-37.0); Mean Corpuscular Hemoglobin 27.6 pg (25.0-35.0); Mean Corpuscular Volume 84 fL (80-100); Monocytes # (Auto) 0.5 Thou/mm3 (0.0-0.8); Monocytes % (Auto) 6 % (0-12); Neutrophils # (Auto) 5.2 Thou/mm3 (1.8-7.7); Neutrophils % (Auto) 72 % (37-80); Nucleated Red Blood Cell # 0.00 Thou/mm3 (0.00-0.00); Nucleated Red Blood Cell % 0 /100 WBC (0); Platelet Count 190 Thou/mm3 (140-440); RDW Standard Deviation 40.1 fL (36.4-46.3); Red Blood Count 3.77 Miln/mm3 (4.00-5.20); White Blood Count 7.2 Thou/mm3 (3.6-11.0)
[2025-05-15 05:57] LABS: Alanine Aminotransferase 17 U/L (10-49); Albumin, Serum 2.9 gm/dL (3.5-5.0); Albumin/Globulin Ratio 1.5 (1.2-2.2); Alkaline Phosphatase 104 U/L (46-116); Anion Gap 7 (7-16); Aspartate Amino Transferase 33 U/L (0-34); BUN/Creatinine Ratio 12 Ratio (12-20); Bilirubin,Total 0.4 mg/dL (0.3-1.2); Blood Urea Nitrogen 7 mg/dL (9-23); Calcium 8.1 mg/dL (8.3-10.6); Calcium (Corrected) 9.0 mg/dL (8.5-10.1); Carbon Dioxide 24.1 mMol/L (20.0-31.0); Chloride 106 mMol/L (98-107); Creatinine (Component) 0.6 mg/dL (0.6-1.3); Estimated Creatinine Clearance 174.2 mL/min (>60); Gentamicin, Random 1.5 mcg/mL (4.0-10.0); Globulin 2.0 gm/dL (2.3-3.5); Glucose 96 mg/dL (74-106); Osmolality,Calculated 271 (275-295); Potassium 3.7 mMol/L (3.4-5.1); Sodium 137 mMol/L (136-145); Total Protein 4.9 gm/dL (5.7-8.2); eGFR > 60 See Note
[2025-05-15 08:00] VITALS: BP 121/79; PULSE 78; RESP 18; TEMP 36.6; O2SAT 98
--- NOTE | 2025-05-15 08:34 | ESPR_ITS ---
Subjective Subjective Interval history: Delivery type: Patient doing well this morning. No acute complaints. Ambulating, tolerating p.o. and voiding without difficulty. HTN/Pre-Eclampsia screen: No chest pain, shortness of breath, headache, visual changes, epigastric or right upper quadrant pain. Breast-feeding, lochia diminishing. Bowel: Flatus+ Exam Vital Signs Temp Pulse Resp BP Pulse Ox O2 Del Method 97.9 F 59 L 18 109/69 98 Room Air 05/15/25 03:58 05/15/25 03:58 05/15/25 03:58 05/15/25 03:58 05/15/25 03:58 05/15/25 03:58 Constitutional Constitutional: no acute distress Routine HEENT Exam Head: Present normocephalic and atraumatic Eye: Present EOMI and PERRL ENT: Present mucous membranes moist Routine Neck Exam Neck: Present supple and trachea midline Routine Respiratory Exam Respiratory: Present chest non-tender, lungs clear, normal breath sounds and no resp distress Routine Cardiovascular Exam Cardiovascular: Present RRR Routine Abdominal Exam Abdominal: Present soft and normoactive bowel sounds Routine Extremities Exam Extremities: Present full ROM Routine Skin Exam Skin: Present intact, dry and warm Routine Neurological Exam Neurological: Present alert, oriented X3 and CN II-XII intact Routine Psychiatric Exam Psychiatric: Present normal affect and normal thought process Objective Labs 05/15/25 05:12 05/15/25 05:12 Labs: Laboratory Results - last 24 hr 05/14/25 05/14/25 05/15/25 11:30 17:00 05:12 WBC 7.4 7.2 RBC 4.61 3.77 L Hgb 12.7 10.4 L D Hct 38.0 31.5 L MCV 82 84 MCH 27.5 27.6 MCHC 33.4 33.0 RDW Std Deviation 38.8 40.1 Plt Count 260 190 D Neut % (Auto) 67 72 Lymph % (Auto) [address] [place] % (Auto) 5 6 Eos % (Auto) 1 1 Baso % (Auto) 1 0 Neut # (Auto) 5.0 5.2 Lymph # (Auto) 1.[address] [place] # (Auto) 0.3 0.5 Eos # (Auto) 0.1 0.1 Baso # (Auto) 0.0 0.0 Immature Gran # (Auto) 0.04 H 0.02 H Absolute Nucleated RBC 0.00 0.00 Immature Gran % 1 H 0 Nucleated RBC % 0 0 Sodium 137 Potassium 3.7 Chloride 106 Carbon Dioxide 24.1 Anion Gap 7 BUN 7 L Creatinine 0.6 Estim Creat Clear Calc 174.2 eGFR > 60 BUN/Creatinine Ratio 12 Glucose 96 Calculated Osmolality 271 L Calcium 8.1 L Corrected Calcium 9.0 Total Bilirubin 0.4 AST 33 ALT 17 Alkaline Phosphatase 104 Total Protein 4.9 L Albumin 2.9 L Globulin 2.0 L Albumin/Globulin Ratio 1.5 Random Gentamicin 1.5 L Urine Opiates Screen Negative U Amphetamin/Meth Scrn Negative U Cocaine Metab Screen Negative U Marijuana (THC) Screen Positive A Syphilis Serology Nonreactive Blood Type O Positive Antibody Screen NEGATIVE Blood Bank Wristband ID Yes Assessment & Plan Problem List (1) Morbid obesity with BMI of 40.0-44.9, adult: Status: Acute (2) : Status: Acute (3) Previous section: Status: Acute Assessment and plan: 1. Continue routine /post-op care 2. Labs reviewed, cbc appropriate 3. Remove dressing/Latif 4. Encourage to ambulate, shower 5. Encourage PO intake, breast feeding Time Spent With Patient Time: Total time spent is greater than 50% in coordination of care (as documented) at patient's floor/unit and/or counseling patient:
[2025-05-15] MEDS: NYSTATIN PWD 15 GM BTL TOP ×2 (08:50→20:39)
[2025-05-15] MEDS: Hydrocortisone Cr 2.5% 30 GM TUBE TOP ×2 (08:51→20:39)
--- NOTE | 2025-05-15 10:00 | PC.SS ---
MEDICAL ADMINISTRATOR conducted bedside contact with the patient to address nursing referral indicating patient was positive for THC upon admission.? MEDICAL ADMINISTRATOR introduced self and role.? MEDICAL ADMINISTRATOR discussed basis of referral.? Patient confirmed use of THC.? Last use was approximately 2 days ago.? Patient stated use to address anxiety and morning sickness symptoms.? Patient stated that use does not impair daily functioning.? Patient stated that she does not use THC in the presence of her other children ages 6 and 2 years old.? Patient stated that THC is secured and out of reach of her 2 children.? Chart review indicates that patient was positive for THC on and during previous admissions at delivery.? Infant, Ayana; is the patient?s 3rd child.? Infant was also positive for THC.? MEDICAL ADMINISTRATOR informed patient that due to positive toxicology results a CWS report will be submitted.? Patient acknowledged submittal of CWS report.? Patient denies ancestry.? Patient denies mental health services.? Patient has not been prescribed medication to address anxiety. FOB, Jonathan Ellsworth; to be involved in the rearing of the .? Infant delivered via .? Patient plans on combo feeding the .? Patient is aligned with WIC, SNAP and TANF.? OB services provided by Dr. Dumont.? Patient confirms consistency with OB appointments.? Patient denies history of alcohol/drug abuse.? Patient confirmed past history CWS intervention due to previous THC results during previous delivery.? Patient denies episodes of domestic violence.? Patient has access to appropriate supplies and equipment; to include a car seat.? Mother will provide transportation upon discharge.? Patient describes possessing support system consisting of FOB?s parent and extended family.? MEDICAL ADMINISTRATOR provided the patient with community resources to include Parenting Network and Warm Line.? No further intervention required at this time, social worker clinical will be available to address any further concerns.? MEDICAL ADMINISTRATOR updated bedside nurse.?
[2025-05-15] MEDS: HYDROcodone/APAP 5/325 TABLET 1 TAB PO (12:09)
[2025-05-15 12:25] VITALS: BP 114/75; PULSE 63; RESP 16; TEMP 36.6; O2SAT 98
--- NOTE | 2025-05-15 15:39 | PC.SS ---
TEXTILE MACHINE MAINTENANCE MECHANIC submitted verbal CWS report to Kayla Vo. Written report to be submitted electronically. CWS to staff matter to determine if response will be within 10 days or immediate. CWS will follow up with TEXTILE MACHINE MAINTENANCE MECHANIC if response will be immediate.
[2025-05-15 16:00] VITALS: BP 123/74; PULSE 73; RESP 18; TEMP 36.7; O2SAT 99
[2025-05-16] MEDS: HYDROcodone/APAP 5/325 TABLET 1 TAB PO (00:15)
[2025-05-16 01:15] VITALS: BP 135/87; PULSE 71; RESP 18; TEMP 36.7; O2SAT 99
[2025-05-16 03:58] VITALS: BP 118/77; PULSE 68; RESP 18; TEMP 36.9; O2SAT 96
[2025-05-16] MEDS: KETOROLAC INJ 30 MG/ML VIAL IVP (05:39)
[2025-05-16] MEDS: LEVOTHYROXINE SODIUM 125 MCG TABLET PO (05:40)
[2025-05-16 05:46] LABS: Basophils # (Auto) 0.0 Thou/mm3 (0.0-0.2); Basophils % (Auto) 0 % (0-2.5); Eosinophils # (Auto) 0.3 Thou/mm3 (0.0-0.5); Eosinophils % (Auto) 4 % (0-10); Hematocrit 34.2 % (36.0-46.0); Hemoglobin 11.2 g/dL (12.0-16.0); Immature Granulocytes Auto 0.02 Thou/mm3 (0.00-0.00); Lymphocytes # (Auto) 1.8 Thou/mm3 (1.0-4.8); Lymphocytes % (Auto) 25 % (10-50); Mean Corpuscular HGB Conc 32.7 g/dl (31.0-37.0); Mean Corpuscular Hemoglobin 27.7 pg (25.0-35.0); Mean Corpuscular Volume 84 fL (80-100); Monocytes # (Auto) 0.5 Thou/mm3 (0.0-0.8); Monocytes % (Auto) 7 % (0-12); Neutrophils # (Auto) 4.5 Thou/mm3 (1.8-7.7); Neutrophils % (Auto) 63 % (37-80); Nucleated Red Blood Cell # 0.00 Thou/mm3 (0.00-0.00); Nucleated Red Blood Cell % 0 /100 WBC (0); Platelet Count 241 Thou/mm3 (140-440); RDW Standard Deviation 41.7 fL (36.4-46.3); Red Blood Count 4.05 Miln/mm3 (4.00-5.20); White Blood Count 7.1 Thou/mm3 (3.6-11.0)
[2025-05-16 06:11] LABS: Alanine Aminotransferase 17 U/L (10-49); Albumin, Serum 3.5 gm/dL (3.5-5.0); Albumin/Globulin Ratio 1.5 (1.2-2.2); Alkaline Phosphatase 107 U/L (46-116); Anion Gap 8 (7-16); Aspartate Amino Transferase 29 U/L (0-34); BUN/Creatinine Ratio 11 Ratio (12-20); Bilirubin,Total 0.2 mg/dL (0.3-1.2); Blood Urea Nitrogen 9 mg/dL (9-23); Calcium 9.1 mg/dL (8.3-10.6); Calcium (Corrected) 9.5 mg/dL (8.5-10.1); Carbon Dioxide 27.5 mMol/L (20.0-31.0); Chloride 106 mMol/L (98-107); Creatinine (Component) 0.8 mg/dL (0.6-1.3); Estimated Creatinine Clearance 130.7 mL/min (>60); Globulin 2.4 gm/dL (2.3-3.5); Glucose 82 mg/dL (74-106); Osmolality,Calculated 278 (275-295); Potassium 3.8 mMol/L (3.4-5.1); Sodium 141 mMol/L (136-145); Total Protein 5.9 gm/dL (5.7-8.2); eGFR > 60 See Note
--- NOTE | 2025-05-16 08:00 | ESPR_ITS ---
Subjective Subjective Interval history: The patient is a 30-year-old -0-0-3 postop day #2 status post repeat low- transverse section #4. Patient was on antibiotics for 24 hours. She is allergic to penicillin so she was on gentamicin and clindamycin. She is passing flatus pain is controlled she had a social work consult. She will be discharged home today after lunch. She is concerned as she has not had a bowel movement and she is okay with Colace or Dulcolax. Patient is passing flatus voiding and her pain is controlled with oral pain medication predelivery hemoglobin 12.7 postop day 1 her hemoglobin is 10.4 today her hemoglobin is 11.2. This morning she is resting comfortably in bed breast-feeding. Exam Vital Signs Temp Pulse Resp BP Pulse Ox O2 Del Method 98.5 F 68 18 118/77 96 Room Air 05/16/25 03:58 05/16/25 03:58 05/16/25 03:58 05/16/25 03:58 05/16/25 03:58 05/16/25 03:58 Narrative Exam Patient is alert and oriented x 3 in no apparent distress. Fundus is firm abdomen is obese incision is clean dry and intact extremities show no significant edema or erythema. Objective Labs 05/16/25 05:20 05/16/25 05:20 Labs: Laboratory Results - last 24 hr 05/16/25 05:20 WBC 7.1 RBC 4.05 Hgb 11.2 L Hct 34.2 L MCV 84 MCH 27.7 MCHC 32.7 RDW Std Deviation 41.7 Plt Count 241 D Neut % (Auto) 63 Lymph % (Auto) 25 [place] % (Auto) 7 Eos % (Auto) 4 Baso % (Auto) 0 Neut # (Auto) 4.5 Lymph # (Auto) 1.8 [place] # (Auto) 0.5 Eos # (Auto) 0.3 Baso # (Auto) 0.0 Immature Gran # (Auto) 0.02 H Absolute Nucleated RBC 0.00 Immature Gran % 0 Nucleated RBC % 0 Sodium 141 Potassium 3.8 Chloride 106 Carbon Dioxide 27.5 Anion Gap 8 BUN 9 Creatinine 0.8 Estim Creat Clear Calc 130.7 eGFR > 60 BUN/Creatinine Ratio 11 L Glucose 82 Calculated Osmolality 278 Calcium 9.1 Corrected Calcium 9.5 Total Bilirubin 0.2 L AST 29 ALT 17 Alkaline Phosphatase 107 Total Protein 5.9 Albumin 3.5 D Globulin 2.4 Albumin/Globulin Ratio 1.5 Assessment & Plan Problem List (1) Morbid obesity with BMI of 40.0-44.9, adult: Problem details: Home on Lovenox Status: Acute (2) Previous section: Status: Acute (3) care following delivery: Problem details: Discharge home later today. Discharge instructions given pain meds placed. Status: Acute Time Spent With Patient Time: Total time spent is greater than 50% in coordination of care (as documented) at patient's floor/unit and/or counseling patient: Time with patient: less than 15 minutes
--- NOTE | 2025-05-16 08:02 | PD.LDDS ---
DS: Providers Provider Date of admission: 05/14/25 10:13 Primary care physician: Physician No Primary/Family Admitting Provider: Ida Dumont MD ([facility]) Attending Provider on Admission: Tushar Reyes MD Consults: 05/14/25 13:52 Referral Routine Comment: Attending Provider on DC: Ida Dumont MD ([facility]) Discharging Provider: Ida Dumont MD ([facility]) Anticipated date of discharge: 05/16/25 DS: Diagnosis Discharge Diagnosis (1) care following delivery: Status: Acute Assessment & Plan: Discharge instructions given. No heavy lifting intercourse tampons or douching x 6 weeks. Follow-up in 2 weeks. (2) Morbid obesity with BMI of 40.0-44.9, adult: Status: Acute Assessment & Plan: Lovenox post (3) Depression affecting in third trimester, antepartum: Status: Acute Assessment & Plan: On no medication but keep an eye on patient for depression. She has already had a social work consult. Problem List Completed Was Problem List Reviewed/Reconciled?: Yes Summary/Hosp Course Brief History: The patient is a 30-year-old -0-0-2 with all care with the [facility]. Patient is 38 weeks with an EDC of 05/28/2025. She presents for scheduled elective repeat section. It is being done at 38 weeks secondary to #4 and a BMI of 43. See history and physical for further details. Hospital course: Patient underwent an uncomplicated repeat #4 05/14/2024. Please see op report for further details. There was a a lot of scar tissue present so the patient was placed on antibiotics in the form of gentamicin and clindamycin x 24 hours postop. Predelivery hemoglobin 12.7 postdelivery hemoglobin 11.2. By postoperative day #2 patient was voiding ambulating tolerating a general diet her pain was controlled with oral pain medication she was breast-feeding. She was discharged home postoperative day #2 in stable condition. Discharge instructions included no heavy lifting intercourse tampons or douching x 6 weeks no exercise x 6 weeks. Peripartum Data Delivery Method: Low Transverse Procedures: Procedures Operation Date: 05/14/25 12:45 Actual Procedure Side Surgeon p in OB Not Applicable Ida Dumont ([facility])MD complications: none Status at Discharge Cognitive/behavioral status at discharge: Patient is alert and orient x 3 no apparent distress. No signs of depression. Functional status at discharge: independent ambulation Overall status at discharge: patient is progressing back to baseline Time Spent with Patient Time attestation: Total time spent providing and/or coordinating discharge services: Time spent: Less than 30 minutes Specific discharge activities: No heavy lifting, intercourse, tampons, douching x 6 weeks no exercise x 6 weeks follow-up in 1 to 2 weeks Exam Vital Signs Temp Pulse Resp BP Pulse Ox O2 Del Method 98.5 F 68 18 118/77 96 Room Air 05/16/25 03:58 05/16/25 03:58 05/16/25 03:58 05/16/25 03:58 05/16/25 03:58 05/16/25 03:58 Narrative Exam Patient's alert and orient x 3 no apparent distress abdomen is obese soft fundus is firm around umbilicus incision is clean dry and intact extremities show no significant edema or erythema. Discharge Plan Plan Patient Disposition: HOME (Self Care) Disposition Comment: Stable Prescriptions/Referrals Prescriptions/Med Rec: New hydrocodone-acetaminophen 5-325 mg Tablet 2 tab PO Q6HR MDD 6 PRN (Reason: Patient rated pain 9 to 10) Qty: 30 0RF levothyroxine 125 mcg Tablet 125 mcg PO ACBR Qty: 30 0RF simethicone 80 mg Tablet,Chewable 80 mg PO Q4HR PRN (Reason: Gas) Qty: 60 0RF enoxaparin [Lovenox] 40 mg/0.4 mL syringe 40 mg subcut Q24H Qty: 4 4RF docusate sodium [Colace] 100 mg capsule 100 mg PO BID Qty: 60 0RF nystatin 100,000 unit/gram powder 1 applic topical TID Qty: 60 0RF Rx Instructions: Apply to incision 3 times a day to prevent the cellulitis Continued PNV no.048-[id number] acid 28 mg iron- 800 mcg tablet 1 tab PO DAILY Qty: 90 2RF cetirizine [Zyrtec] 10 mg tablet 10 mg PO QHS Qty: 60 2RF Discontinued fluconazole 150 mg tablet 150 mg PO QDAY 0 Days Qty: 1 0RF Rx Instructions: administer on day 1 of therapy ondansetron 4 mg tablet,disintegrating 4 mg PO Q6H PRN (Reason: nausea and vomiting) Qty: 14 0RF No Action levothyroxine 125 mcg capsule 125 mcg PO QDAY Qty: 60 0RF Referrals: No Primary/Family,Physician [Primary Care Provider] Patient/Caregiver Discharge Instructions Discharge Activity: activity as tolerated Other Discharge Activity Instructions:: No heavy lifting intercourse tampons or douching x 6 weeks. No heavy exercise x 6 weeks. Other Discharge Diet Instructions: General diet as tolerated. Education Materials: Depression: Tips to Help Yourself, C Section Dc Print Language: Salvadorean Activity Restrictions/Additional Instructions: No heavy lifting intercourse tampons douching swimming bathtubs x 6 weeks. Follow-up in the office in 1 to 2 weeks for a wound check. Call with severe depression fevers chills or heavy vaginal bleeding. Stand Alone Forms: Saniya Award Info., Patient Portal Info Letter Discharge Order Discharge Orders: Discharge (Routine); Ordered 05/16/25 Ordered By: Ida Dumont ([facility]) Planned Discharge Date 05/16/25
[2025-05-16 08:25] VITALS: BP 128/81; PULSE 73; RESP 19; TEMP 36.9; O2SAT 99
--- NOTE | 2025-05-16 09:55 | PC.SS ---
CWS report placed in patient's chart. Written report submitted electronically to CWS.
[2025-05-16] MEDS: DOCUSATE SOD 100 MG CAPSULE PO (11:57)
== END 2025-05-16 13:10 | disposition home or self-care (01) | DRG 540 ==
LOC: S4SX 10:16 → S4NX 12:31
PROVIDERS: Admitting Provider Obstetrics & Gynecology; Visit Provider Obstetrics & Gynecology
PROC: (CPT 59514; principal; 2025-05-14 12:30)
DX: O34.211 Maternal care for low transverse scar from previous cesarean delivery (principal); O99.214 Obesity complicating childbirth; E66.01 Morbid (severe) obesity due to excess calories; Z37.0 Single live birth; Z3A.38 38 weeks gestation of pregnancy; O99.344 Other mental disorders complicating childbirth; O99.284 Endocrine, nutritional and metabolic diseases complicating childbirth; F41.9 Anxiety disorder, unspecified; E03.9 Hypothyroidism, unspecified; N73.6 Female pelvic peritoneal adhesions (postinfective); F53.0 Postpartum depression; Z88.0 Allergy status to penicillin; O99.345 Other mental disorders complicating the puerperium
CPT/HCPCS: 36415; 80053; 80170; 80307; 85025; 86780; 86850; 86900; 86901; A4217; A4314; A4649; J0131; J0736; J1580; J1885; J2250; J2274; J2405; J2590; J2704; J3490; J7050; A9270; J2270

== ENCOUNTER 2025-05-16 15:46 | Emergency (ER) | payer MEDICAID, SELFPAY ==
[2025-05-16 15:59] VITALS: BP 146/90; PULSE 73; RESP 20; TEMP 37.1; O2SAT 98
--- NOTE | 2025-05-16 16:16 | EDNOTE_ITS ---
ED OB Contraction Preg RMI/HPI General Chief complaint: OB/Uterine Contractions Stated complaint: BLEEDING FROM C. SECTION SITE, C. SECTION 05/14 Time Seen by Provider: 05/16/25 16:00 Arrival date/time: 05/16/25 15:46 30-year-old female who is status post section 2 days ago reports with complaints of bleeding from surgical site. Patient denies any fever chills nausea vomiting purulent discharge weakness or fatigue. Patient states that she has not been lifting any heavy objects as directed but she has been doing some movements and stretching. Patient states the bleeding stopped immediately but she was concerned due to the amount on the padding. Limitations: no limitations Related Data Previous Rx's ?Medication ?Instructions ?Recorded cetirizine 10 mg tablet (Zyrtec) 10 mg PO QHS #60 tabs 11/20/24 levothyroxine 125 mcg capsule 125 mcg PO QDAY #60 caps 11/20/24 vitamins no.159-iron 1 tab PO DAILY #90 tabs 11/20/24 fumarate 28 mg-folic acid 800 mcg tablet docusate sodium 100 mg capsule 100 mg PO BID #60 caps 05/16/25 (Colace) enoxaparin 40 mg/0.4 mL 40 mg (0.4 mL) subcut Q24H # 4 mL 05/16/25 subcutaneous syringe (Lovenox) hydrocodone 5 mg-acetaminophen 325 2 tab PO Q6HR PRN P atient rated 05/16/25 mg tablet pain 9 to 10 #30 tabs levothyroxine 125 mcg tablet 125 mcg PO ACBR #30 tabs 05/16/25 nystatin 100,000 unit/gram topical 1 applic topical TI D #60 grams 05/16/25 powder simethicone 80 mg chewable tablet 80 mg PO Q4HR PRN Ga s #60 tabs 05/16/25 Allergies Allergy/AdvReac Type Severity Reaction Status Date / Time Penicillins Allergy Unknown Rash Verified 05/16/25 15:50 amoxicillin Allergy Rash Verified 05/16/25 15:50 Review of Systems Constitutional Constitutional: Denies chills, Denies fever(s) and Denies headache(s) ENT Ears, Nose, Mouth, and Throat: Denies headache(s), Denies neck pain and Denies vertigo Cardiovascular Cardiovascular: Denies chest pain and Denies dyspnea Respiratory Respiratory: Denies cough and Denies dyspnea Gastrointestinal Gastrointestinal: Denies nausea and Denies vomiting Musculoskeletal Musculoskeletal: Denies myalgias and Denies neck pain Integumentary/Breasts Skin/Breast: Denies unusual bruising and Reports wounds Neurologic Neurologic: Denies headache(s) and Denies vertigo Past Medical History Past Medical History NEUROLOGIC: Negative Neurological Disorders, Cerebrovascular Accident, Dementia, Alzheimer's Disease, Parkinson's Disease, Brain Tumor, Meningitis, Seizures, E pilepsy, Multiple Sclerosis, Cerebral Palsy, Amyotrophic Lateral Sclerosis (ALS/Antonella Gehrig's), Guillain-Huntington Syndrome, Spina Bifida, Paralysis, Peripheral Neuropathy, Wyatt's Palsy, Subdural Hematoma, Migraine, Head Trauma, Spinal Cord Injury or Traumatic Brain Injury CARDIAC: Negative Cardiac Disorders, Myocardial Infarction, Cardiac Arrhythmia, Atrial Fibrillation, Angina, Heart Murmur, Coronary Artery Disease, Atherosclerotic Heart Disease, Peripheral Vascular Disease, Hypercholesterolemia, Aneurysm, Congestive Heart Failure, Valvular Heart Disease, Rheumatic Fever, Cardiomyopathy, Edema, Pericarditis, Cellulitis, Deep Vein Thrombosis, Hypertension, Hypotension or Varicose Veins RESPIRATORY: Positive Smoking (current marijuana smoker) and Smoking Exposure; Negative Chronic Obstructive Pulmonary Disease (COPD), Asthma, Bronchitis, Emphysema, Pneumonia, Pulmonary Fibrosis, Tuberculosis, Pulmonary Embolism, Pulmonary Edema, Sleep Apnea, CPAP Dependent, Respiratory Aspiration, Dyspnea, Orthopnea, Cough, Sputum Production, Wheezing, Chest Deformities, Smoking Cessation Counseling, Tobacco Use, Clubbing, Exposure to Respiratory Irritants or Intubation GASTROINTESTINAL: Positive Gastrointestinal Disorders, Gall Bladder Disease (Kavitha 2020) and Obesity; Negative Liver Cancer, Hepatitis, Cirrhosis, Pancreatic Cancer, Pancreatitis, Celiac Disease, Gastrointestinal Bleed, Esophageal Varices, Moore's Esophagus, Colitis, Ulcerative Colitis, Diverticulitis, Diverticulosis, Ulcer, Colorectal Cancer, Irritable Bowel, Crohn's Disease, Obstructive Bowel, Hiatal Hernia, Hemorrhoids or Gastroesophageal Reflux Disease GENITOURINARY: Negative Genitourinary Disorders, Renal Disease, Kidney Stones, Polycystic Kidney Disease, Neurogenic Bladder, Inguinal Hernia, Dialysis, Prostate Cancer or Benign Prostatic Hyperplasia REPRODUCTIVE: Positive Gonorrhea (202) and Previous Pregnancies (X3); Negative Breast Cancer, Endometriosis, Fibroids, Genital Herpes, Pelvic Inflammatory Disease, Hx Polycystic Ovarian Syndrome, Syphilis, Testicular Cancer or Uterine Prolapse MUSCULOSKELETAL: Negative Musculoskeletal Disorders, Muscular Dystrophy, Myasthenia Gravis, Marfan's Syndrome, Bone Cancer, Arthritis, Rheumatoid Arthritis, Osteoporosis, Degenerative Disk Disease, Gout, Scoliosis, Carpal Tunnel Syndrome, Fibromyalgia, Fractures, Degenerative Joint Disease, Osteomyelitis or Poliovirus ENT: Negative Cataracts, Glaucoma, Blind, Retinal Detachment, Macular Degeneration, Ear Infection, Deafness, Head Trauma or Eye Prosthesis ENDOCRINE: Positive Endocrine Disorders and Hypothyroidism; Negative Diabetes Mellitus Type 1, Diabetes Mellitus Type 2, Hypoglycemia, Silvano's Syndrome, [place]'s Disease, Thyroid Cancer, Pituitary Disease, Systemic Lupus Erythematosus, Syndrome of Inappropriate Antidiuretic Hormone (SIADH), Adrenal Disease or Graves' Disease HEMATOLOGIC: Negative Blood Disorders, Anemia, Leukemia, Hemophilia, Thalassemia, Sickle Cell Disease or Clotting Problems PSYCHO/SOCIAL: Positive Recreational Drug Use (MJ), Depression (no meds) and Anxiety (no meds); Negative Schizophrenia, Bipolar Disorder, Behavior Problems, Self-Mutilation, Attention Deficit Disorder, Attention Deficit Hyperactivity Disorder, Depression, Post Traumatic Stress Disorder or Eating Disorder OTHER HISTORY: Positive Hospitalization (CS x3, GB removal) and Chicken Pox; Negative Autoimmune Disease, Down Syndrome, Autism, Developmental Delay, Cosmetic Surgery, Shingles, Falls, Blood Transfusions, Blood Transfusion Reaction, Anesthesia Reactions, Organ Transplant, Chemotherapy, Radiation Therapy, Hyperbaric Therapy, MRSA, VRSA, Vancomycin-Resistant Enterococci, Human Immunodeficiency Virus (HIV), Measles, Mumps, Rubella ([place]ian Measles), Pertussis, Hx Klebsiella Pneumoniae Carbapenemase (KPC)-Producing Bacteria, Clostridium Difficile, Hepatitis A, Hepatitis B, Hepatitis C, Communicable Disease, Cancer, Breast Cancer, Cervical Cancer, Colorectal Cancer, Lung Cancer, Ovarian Cancer, Prostate Cancer or Testicular Cancer Family History FAMILY HISTORY: Positive Family Psychiatric Problems (Depression/Mental illness- Maternal side), Family Respiratory Disorders (MOTHER,SISTER (ASTHMA)), Family Cardiac Disorders (MOTHER (HTN)), Family Gastrointestinal Problems (MOTHER (ULCER)) and Family Cancer (Brother-lymphoma, maternal grandmother-cancer); Negative Family Surgery or Family Anesthesia Reaction Surgical History SURGICAL: Positive Abdominal Surgery () and Section; Negative Cardiac Surgery, Coronary Artery Bypass Graft, Valve Replacement, Pacemaker, Carotid Endarterectomy, Endocrine Surgery, Thyroidectomy, Ear Surgery, Nephrectomy, Joint Replacement, Neurologic Surgery, Mastectomy, Hysterectomy or Organ Transplant Social History SMOKING STATUS: Never smoker SECOND HAND EXPOSURE: Yes ED Exam General Limitations: Present no limitations General appearance: Present alert and in no apparent distress Chest Chest inspection: Present normal inspection and symmetric chest wall rise Respiratory Respiratory exam: Present normal lung sounds bilaterally Cardiovascular Cardiovascular exam: Present regular rate, normal rhythm and normal heart sounds Abdominal Exam Abdominal exam: Present soft, tenderness (at surgical site) and scar (Transverse pelvic scar with well-approximated edges scant bleeding no purulent discharge minimally tender to palpation no erythema or ecchymosis noted); Absent distention, guarding, rebound, mass or bruit Extremities Exam Extremities exam: Present normal inspection and full ROM Back Exam Back exam: Present normal inspection and full ROM Neurological Exam Neurological exam: Present alert, oriented X3 and CN II-XII intact Psychiatric Psychiatric exam: Present normal affect and normal mood Skin Skin exam: Present warm, dry, intact and normal color Course Quality Measures none Vital Signs Vital signs: Vital Signs Temperature 98.7 F 05/16/25 15:59 Pulse Rate 73 05/16/25 15:59 Respiratory Rate 20 05/16/25 15:59 Blood Pressure 146/90 H 05/16/25 15:59 Pulse Oximetry (%) 98 05/16/25 15:59 Oxygen Delivery Method Room Air 05/16/25 15:59 OB/Uterine Contractions Patient data External records reviewed:: None Clinical information provided by:: patient Social determinants that could affect healthcare access:: none Patient has the following chronic illnesses:: none How is presenting disease/condition affected by chronic disease/condition?: no chronic disease Evaluation data The following diagnostics were reviewed and interpreted by me:: other (specify) (none) Lab and/or radiology exams considered but not ordered:: none Interpretation Summary: n/a Medications / Prescriptions Medications or Prescriptions considered but not ordered:: none Medication administrations:: none Consultations Consultation(s) initiated? (list below): No Diagnosis OB Contractions Differential Diagnosis: other (Wound dehiscence versus infection of the wound versus scant bleeding from the room) Most likely diagnosis given after review of the tests above:: Scant bleeding from wound Admission Indicated Explain why admission is indicated or not indicated:: Condition is minor no evidence of infection patient is afebrile nontoxic- appearing with stable vital signs wound no longer bleeding cleaned and dressed Admission Request Was there a request for admission?: No Disposition Plan Disposition Plan: Discharge Discharge Attestation Discharge Attestation: The patient and all family members were given an opportunity to ask questions and understood the discharge instructions. Discharge instructions specifically effects, indications for sooner follow up or return to the emergency department, and the expected course of current diagnosis. Patient condition: Stable Discharge Plan Plan Patient Disposition: HOME (Self Care) Prescriptions/Referrals Prescriptions/Med Rec: No Action PNV no.[id number] acid 28 mg iron- 800 mcg tablet 1 tab PO DAILY Qty: 90 2RF levothyroxine 125 mcg capsule 125 mcg PO QDAY Qty: 60 0RF cetirizine [Zyrtec] 10 mg tablet 10 mg PO QHS Qty: 60 2RF hydrocodone-acetaminophen 5-325 mg Tablet 2 tab PO Q6HR MDD 6 PRN (Reason: Patient rated pain 9 to 10) Qty: 30 0RF levothyroxine 125 mcg Tablet 125 mcg PO ACBR Qty: 30 0RF simethicone 80 mg Tablet,Chewable 80 mg PO Q4HR PRN (Reason: Gas) Qty: 60 0RF enoxaparin [Lovenox] 40 mg/0.4 mL syringe 40 mg subcut Q24H Qty: 4 4RF docusate sodium [Colace] 100 mg capsule 100 mg PO BID Qty: 60 0RF nystatin 100,000 unit/gram powder 1 applic topical TID Qty: 60 0RF Rx Instructions: Apply to incision 3 times a day to prevent the cellulitis Problem List Clinical Impression: Bleeding from surgical wound Patient/Caregiver Discharge Instructions Discharge Activity: activity as tolerated Additional Instructions: Keep the area clean and dry avoid stretching bending reaching or lifting any heavy objects. Keep bandages applied to area and follow-up with your [facility] SAL[facility] SPECIALIST in 24 to 48 hours for reevaluation. Return to the emergency department if symptoms worsen Print Language: Venezuelan Stand Alone Forms: Saniya Award Info., Patient Portal Info Letter
== END 2025-05-16 17:03 | disposition home or self-care (01) ==
LOC: SERX 16:39
PROVIDERS: Emergency Provider Emergency Medicine; PCP Physician Assistant
DX: L76.22 Postprocedural hemorrhage of skin and subcutaneous tissue following other procedure (principal)
CPT/HCPCS: 99284

== ENCOUNTER 2025-05-28 09:58 | Outpatient (AMB) | payer MEDICAID, SELFPAY ==
[2025-05-28 10:16] VITALS: BP 114/72; PULSE 61; RESP 17; TEMP 36.6; O2SAT 97; BMI 40.6
--- NOTE | 2025-05-28 10:16 | AMBOBPPN_ITS ---
Vital Signs 05/28/25 10:16 Height 1.65 m Height Method Stated Weight 110.45 kg Weight Measurement Method Standing Scale BMI 40.6 BP 114/72 Blood Pressure Source Automatic Cuff Blood Pressure Location Right Upper Arm Position Sitting Respiration 17 Pulse 61 Pulse Source Monitor Temp 97.9 F Temp Source Temporal Artery Scan Pulse Oximetry (%) 97 Oxygen Delivery Method Room Air Allergies/Home Meds Allergies & Medications Allergies Penicillins Allergy (Unknown, Verified 05/28/25 10:17) Rash amoxicillin Allergy (Verified 05/28/25 10:17) Rash Medication Reconciliation levothyroxine 125 mcg capsule 125 mcg PO QDAY #60 caps 11/20/24 [Rx Confirmed 05/28/25] hydrocodone 5 mg-acetaminophen 325 mg tablet 2 tab PO Q6HR PRN Patient rated pain 9 to 10 #30 tabs 05/16/25 [Rx Confirmed 05/28/25] levothyroxine 125 mcg tablet 125 mcg PO ACBR #30 tabs 05/16/25 [Rx Confirmed 05/28/25] clobetasol 0.05 % topical ointment 1 applic topical QHS 4 weeks #45 grams 05/30/25 [Rx] nystatin 100,000 unit/gram topical powder 1 applic topical QID #60 grams 05/30/25 [Rx] Intake Visit Data Collection New Patient or Established: Established Patient (seen at [facility] within 3 years) Reason for Visit:: CSECTION Seen by Clinical Staff ONLY (RN/MA): No Clinical Engineer Required: No Do You Feel Safe at Home: Yes Authorities Contacted: N/A PCP or OBGYN visit in last 3 months: Yes Date of Last PCP or OBGYN visit: 05/16/25 Hx Now: No Are you currently on any form of Control: No Pain Present Currently: Yes Pain Location: Abdomen Pain Scale Used: Woodruff-Butt/Numerical Pain scale:: 3 Smoking Status Smoking Status: Never smoker HAND ALMOND BLANCHER: Past Medical History Past Medical History: No Hx Neurological Disorders, Yes Hx Hypothyroidism, No Hx Breast Cancer, No Hx Cardiac Disorders, No Hx Hypertension, No Hx Cancer, No Hx Blood Disorders, No Hx Anemia, Yes Hx Gastrointestinal Disorders, No Hx Renal Disease, No Hx Deep Vein Thrombosis, No Hx Diabetes Mellitus Type 1, No Hx Diabetes Mellitus Type 2, No Hx Hysterectomy and No Hx Polycystic Ovarian Syndrome Questionnaires Covid-19 Vaccine Questionnaire Has patient been vacinated for Covid-19 Have you been vacinated for Covid-19: No Social History Living Situation History Marital Status: Lives With: Family (Parents) Housing: House Housing Other:: Stays at home IHSS (In house support) for son w/Type I DM. New FOB Tobacco History Smoking Status: Never smoker Second Hand Smoke Exposure: Yes Alcohol History Alcohol Intake: Never Alcohol Intake Frequency: holidays/special occasions only Substance Use History Substance Use: Marijuana Domestic Abuse History Do You Feel Safe at Home: Yes EPDS - PP Depression Screening [place] Pospartum Depression Screen I have been able to laugh and see the funny side of things: (0) As much as I always could I have looked forward with enjoyment to things: (0) As much as I ever did I have blamed myself unnecessarily when things went wrong: (0) No, never I have been anxious or worried for no good reason: (0) No, not at all I have felt scared or panicky for no very good reason: (0) No, not at all Things have been getting on top of me: (0) No, I have been coping as well as ever I have been so unhappy that I have had difficulty sleeping: (0) No, not at all I have felt sad or miserable: (0) No, not at all I have been so unhappy that I have been crying: (0) No, never The thought of harming myself has occurred to me: (0) Never Total Score: EPDS Score: Referral is indicated for score of 9 or more, suicidal, or if provider believes patient is depressed regardless of score.: 0 EPDS completed yes Care OB Visit Log OB Flowsheet Initial Weight: Not Recorded Date -?-?-?-?-?-?-?-?-?-?-?-?- EGA Weight BP Alb Glu CTX Pres Fundal ht FHR Mov Dilation Station Effacement Hx Notes Visit Note 10/20/24 -?-?-?-?-?-?-?-?-?-?-?-?- 8w 0d 105.233 kg 121/76 130 11/20/24 -?-?-?-?-?-?-?-?-?-?-?-?- 12w 3d 102.512 kg 116/77 140 absent 12/20/24 -?-?-?-?-?--?-?-?-?-?-?-?- 16w 5d 109.089 kg 111/68 absent 15 135 a bsent 29-year-old multipara for OB check. Patient states she is compliant with levothyroxine 125. History of hypothyroid. Denies movement at this time. No SAB complaints. Patient refuses AFP today. Schedule [facility] for anatomy scan. And return in 4 weeks OB check 01/17/25 -?-?-?-?-?-?-?-?-?-?-?-?- 20w 5d 108.862 kg 107/70 absent 20 140 active +FM N o VB Patient crying. Very tearful. Having problems with the father the baby. She does not think he wants to be involved. Needs counseling. This was set up. 01/31/25 -?-?-?-?-?-?-?-?-?-?-?-?- 22w 5d 112.094 kg 115/72 absent 23 134 a ctive No bleeding no contractions no loss of fluids Patient states she did not follow-up with her outpatient referral to mental health. She states she feels better. She states that she was having a bad day last time she saw me. She declines medication or counseling she. 03/09/25 -?-?-?-?-?-?-?-?-?-?-?-?- 28w 0d 113.115 kg 119/73 absent 28 156 active +FM n o UCs No LOF Desires STD testing 03/21/25 -?-?-?-?-?-?-?-?-?-?-?-?- 29w 5d 112.264 kg 108/71 absent 30 160 a ctive Good movement no contractions no loss of fluid Te arful in the office today unsure why. Patient states she is worried about her insulin-dependent diabetic toddler when she is in the hospital. Father the baby is going to [facility]. He was not probably going to be involved with this anyway. 04/11/25 -?-?-?-?-?-?-?-?-?-?-?-?- 32w 5d 113.625 kg 126/77 absent 35 145 a ctive Good movement no contractions no loss of fluids. Baby measuring large. Following with [facility]. Schedule at 38 weeks. KRISTA Calculator Estimated Delivery Date Method Current WG Current Estimate 06/01/25 Ultrasound #1 39w 5d Other Estimates 05/28/25 LMP (Certain) 40w 2d Expected Delivery Route/Plan 30 y/o Repeat 1-2 week prior to due date approximately May 14- Specific Issue/Plans Daily marijuana user. New father of the baby. Previous x 3 Starting maternal BMI 38 Severe anxiety depression mood instability/at high risk for depression and anxiety Hypothyroidism on meds Declines tubal ligation Notes Visit Date: 04/11/25 Last Updated by: Ida Dumont ([facility])MD NSTs BPP's authorized and scheduled. Schedule 05/14/2025. EDC 05/28/2025. LGA baby. Morbid obesity. Previous x 3. Visit Date: 03/21/25 Last Updated by: Ida Dumont ([facility])MD STD testing reviewed and normal patient had this drawn at [facility] 03/09/2025 she does not have BV she has yeast. She is RPR nonreactive hepatitis B surface antigen negative HIV negative and she is positive for HSV IgG. She has a history of cold sores. This was all explained in detail to the patient today. We will prescribe Diflucan she states she saw the maternal- medicine doctors in [place] at [facility] on the . I do not have report yet she stated they wanted to start NSTs. We will get the schedule. Most likely for obesity. Patient is always very tearful in the office we have tried to send her to counseling and she has not shown up. She declines counseling. None of her labs are scanned on the chart. None of her level 2 ultrasounds are scanned in the chart. Will try to get a hold of these. Will schedule her for an NSTs starting at 32 weeks. For obesity, marijuana user, multiple C-sections Visit Date: 03/09/25 Last Updated by: Ida Dumont ([facility])MD The patient wants STD testing. She states she had relations with someone about a month ago but did not use a condom. She also wants to be tested for BV. But she declines a speculum exam stating she does not want me to look down there She would prefer to collect her own swab for BV. I explained this might not be accurate but the patient is insistent. She denies foul smelling DC, bleeding or other symptoms. A Level II us from [facility] at 25 weeks was obtained and reviewed with the patient. Fasting glucose and HgB AiC WNL. Pt declined GCT. Need PNC recored on chart. NIPT WNL. 46 XX Visit Date: 11/20/24 Last Updated by: Ida Dumont ([facility])MD Patient is tearful in the office stating she had to wait a long time. She states she cannot sleep and requests generic Zyrtec. She would like a refill on vitamins. She thinks she has BV and would like a treatment with a cream. Her thyroid values were off and she cannot get into her primary care. She is on 100 mcg of thyroid replacement we will bump this up to 125 mcg. She is very stressed about delivery stating that she is the only person who can give her 5-year-old son his insulin. She is wondering if her 5-year-old could stay in the hospital with her. I told her this is not hospital policy. She might have to train another family member to give her son's insulin. HPI Was or delivery considered high risk: Yes Delivery type: Was labor induced: no Gestational age at delivery (weeks): 38 Delivery date: 05/14/25 Delivering provider: Dr Pham Dumont Delivery complications: No Is patient infant: Yes Is patient sexually active: No Review of Systems Constitutional Comments: No fevers chills. No significant abdominal pain or heavy bleeding. No depression. Exam Narrative Physical exam: Incision clean dry and intact. Dermabond tape removed. Small area less than half an inch leaking serous fluid clear. Reassurance given. Nystatin powder called in for incision. Clobetasol for itchy skin around thighs and skin fold around incision also prescribed. Fundus is firm nontender no erythema. No induration. Extremities show no significant edema or erythema General Limitations: no limitations General Appearance: alert, in no apparent distress, cooperative and obese Office Procedures [facility] Clinic LOC & Office Proc's Nursing/Assessment Patient Status: Established Patient OB Clinic Nursing Assessment: Medication Reconciliation, Update PMH in EMR and Vital Signs OB Clinic Coordination of Care: Complex Care and Chronic Disease 1-5, Education Complex Pt/Fam, Consent,records obtained, informed consent and Staff clarify orders Established Patient Charge Established Patient Point Assignment: 90 Established Patient Point Charge: EP Level 3 (80-115) Antepartum Initial or Follow-up Antepartum Initial Visit: Yes Assessment & Plan Diagnosis / Problem List (1) care following delivery: Status: Acute Plan: Doing well. No heavy lifting intercourse tampons douching or heavy exercise for 4 more weeks (2) Morbid obesity with BMI of 40.0-44.9, adult: Status: Acute Plan: Continue to encourage weight loss. Healthy eating and good sleep habits were discussed. Care Reviewed delivery summary and any complications: Yes Uterus involuted to: 15 weeks size Perineal / incision healing noted: Yes Screened for depression: Yes Depression counseling provided: No Discussed family planning & contraception: No Counseling on safe resumption of sexual activity: No Counseling on gradual excercise: Yes Discussed and concerns (describe), provided support: Yes Referred to loan documentation specialist: No Counseled on good nutrition, hydration, and self care: Yes Reviewed vaccine status: No Chronic & current problems reconciled on problem list: No Additional follow up plans: Follow-up in 4 weeks for a Pap if needed, pelvic exam and to discuss contraception care discussed; questions answered: feeding and sleep Follow up: other (In 4 weeks) Additional counseling & anticipatory guidance provided: Call if her incision continues to drain or if she has pus fevers chills or erythema.
== END 2025-05-28 10:38 | disposition home or self-care (01) ==
LOC: HODSOBC 09:58
PROVIDERS: Supervising Provider Obstetrics & Gynecology; Visit Provider Obstetrics & Gynecology
DX: Z39.2 Encounter for routine postpartum follow-up (principal); O99.215 Obesity complicating the puerperium; E66.01 Morbid (severe) obesity due to excess calories; Z39.1 Encounter for care and examination of lactating mother; Z88.0 Allergy status to penicillin
CPT/HCPCS: 59425; 99213; G0463

== ENCOUNTER 2025-06-13 11:26 | Outpatient (AMB) | payer MEDICAID, SELFPAY ==
--- NOTE | 2025-06-13 11:43 | AMBOBPPN_ITS ---
Vital Signs 06/13/25 11:48 Height 1.65 m Height Method Stated Weight 111.3 kg Weight Measurement Method Standing Scale BMI 40.8 BP 96/57 L Blood Pressure Source Automatic Cuff Blood Pressure Location Left Upper Arm Position Sitting Respiration 16 Pulse 75 Pulse Source Monitor Temp 97.2 F Temp Source Oral Pulse Oximetry (%) 97 Oxygen Delivery Method Room Air Allergies/Home Meds Allergies & Medications Allergies Penicillins Allergy (Unknown, Verified 06/13/25 11:49) Rash amoxicillin Allergy (Verified 06/13/25 11:49) Rash Intake Visit Data Collection New Patient or Established: Established Patient (seen at [facility] within 3 years) Reason for Visit:: POSTPAARTUM Seen by Clinical Staff ONLY (RN/MA): No Market Research Worker Required: No Do You Feel Safe at Home: Yes Authorities Contacted: N/A PCP or OBGYN visit in last 3 months: Yes Date of Last PCP or OBGYN visit: 05/28/25 Hx Now: No Are you currently on any form of Control: No Pain Present Currently: No Pain Scale Used: Woodruff-Butt/Numerical Pain scale:: 0 Smoking Status Smoking Status: Never smoker Immunizations Flu Vaccine in the Last 12 Months: No Flu Vaccine Exclusion Criteria: No Exclusion Criteria 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: Past Medical History Past Medical History: No Hx Neurological Disorders, Yes Hx Hypothyroidism, No Hx Breast Cancer, No Hx Cardiac Disorders, No Hx Hypertension, No Hx Cancer, No Hx Blood Disorders, No Hx Anemia, Yes Hx Gastrointestinal Disorders, No Hx Renal Disease, No Hx Deep Vein Thrombosis, No Hx Diabetes Mellitus Type 1, No Hx Diabetes Mellitus Type 2, No Hx Hysterectomy and No Hx Polycystic Ovarian Syndrome Questionnaires Covid-19 Vaccine Questionnaire Has patient been vacinated for Covid-19 Have you been vacinated for Covid-19: No Social History Living Situation History Marital Status: Single Lives With: Family (Parents) Housing: House Housing Other:: Stays at home IHSS (In house support) for son w/Type I DM. New FOB Tobacco History Smoking Status: Never smoker Second Hand Smoke Exposure: Yes Alcohol History Alcohol Intake: Never Alcohol Intake Frequency: holidays/special occasions only Substance Use History Substance Use: Marijuana Domestic Abuse History Do You Feel Safe at Home: Yes EPDS - PP Depression Screening [place] Pospartum Depression Screen I have been able to laugh and see the funny side of things: (0) As much as I always could I have looked forward with enjoyment to things: (0) As much as I ever did I have blamed myself unnecessarily when things went wrong: (0) No, never I have been anxious or worried for no good reason: (0) No, not at all I have felt scared or panicky for no very good reason: (0) No, not at all Things have been getting on top of me: (0) No, I have been coping as well as ever I have been so unhappy that I have had difficulty sleeping: (0) No, not at all I have felt sad or miserable: (0) No, not at all I have been so unhappy that I have been crying: (0) No, never The thought of harming myself has occurred to me: (0) Never Total Score: EPDS Score: Referral is indicated for score of 9 or more, suicidal, or if provider believes patient is depressed regardless of score.: 0 EPDS completed yes HPI Interval History: Ursula Hernández presents for follow-up approximately one month after section delivery on May 14. She had been previously seen by Dr. Dumont who noted a small gap in her incision and prescribed a powder treatment. The patient reports that the incision site has dried up with no liquid drainage or signs of infection. She is currently her baby. She denies having diabetes during this . She reports that tubal sterilization was not performed during her section due to scar tissue preventing the procedure. She is interested in contraceptive options and inquires about control effectiveness. She has a history of section on May 14, 2025, with attempted tubal ligation during the section that was unable to be completed due to scar tissue. She is a female with an obstetric history of G1 T1 L1. She is currently her infant. ROS: Negative except as stated above, limited to 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 and pertinent complaints. Exam Narrative Physical exam: - Abdominal: incision site appears dried up without signs of infection. No liquid drainage noted from the incision. General General Appearance: alert, in no apparent distress and healthy appearing Head Head exam: atraumatic Neck Neck exam: Present normal inspection and trachea midline Chest Chest inspection: Present normal inspection and symmetric chest wall rise External exam: Present normal external exam; Absent tenderness Neuro Neurological exam: Present oriented X3 Psych Psychiatric exam: Present normal affect and normal mood Office Procedures [facility] LOC & Office Proc's Nursing/Assessment Patient Status: Established Patient OB Clinic Nursing Assessment: Medication Reconciliation, Update PMH in EMR and Vital Signs OB Clinic Coordination of Care: Consent,records obtained, informed consent, Education Simp Pt/Fam, Lab and Imaging orders, Results/Orders obtained and Staff clarify orders Established Patient Charge Established Patient Point Assignment: 80 Established Patient Point Charge: EP Level 3 (80-115) Assessment & Plan Diagnosis / Problem List (1) Encounter for initial prescription of transdermal patch hormonal con traceptive device: Status: Acute (2) care following delivery: Status: Acute (3) Morbid obesity with BMI of 40.0-44.9, adult: Status: Acute Plan Section Incision Healing: - One month post- section performed on May 14. - Incision site well-healed and dried up with no signs of infection. - No drainage or liquid discharge present from incision site. Plan: - No medications or special treatments required for incision care. - Continue normal activities. - No follow-up visit needed for incision healing. Contraception Counseling and Initiation: - Patient desires contraception after being unable to receive tubal sterilization due to scar tissue. - Patient inquired about oral contraceptive pills and their effectiveness. Plan: - Discussed contraceptive patch as alternative to oral contraceptives due to improved compliance. - Educated patient that patch contains same hormones as pills but delivered through skin. - Advised patch placement in hidden location and weekly [id number] changes. - Patient can start contraceptive patch immediately without waiting. - Prescription being sent to pharmacy.
[2025-06-13 11:48] VITALS: BP 96/57; PULSE 75; RESP 16; TEMP 36.2; O2SAT 97; BMI 40.8
== END 2025-06-13 12:03 | disposition home or self-care (01) ==
LOC: HODSOBC 11:26
PROVIDERS: Supervising Provider Obstetrics & Gynecology; Visit Provider Obstetrics & Gynecology
DX: Z39.2 Encounter for routine postpartum follow-up (principal); O99.215 Obesity complicating the puerperium; E66.01 Morbid (severe) obesity due to excess calories; Z30.016 Encounter for initial prescription of transdermal patch hormonal contraceptive device; Z88.0 Allergy status to penicillin
CPT/HCPCS: 99213; G0463